=== PATIENT | female | born 1955 | race Caucasian/White ===

== ENCOUNTER 2019-06-23 23:19 | Inpatient (IN) | payer BC, MEDICARE ==
[2019-06-24] MEDS ORDERED: Morphine 2 MG/ML SYRINGE ONE (01:58)
[2019-06-24] MEDS ORDERED: diphenhydrAMINE 50 MG/ML VIAL ONE (02:05)
[2019-06-24] MEDS ORDERED: Ondansetron ODT 4 MG TAB SL PRN (03:44)
[2019-06-24] MEDS ORDERED: Ondansetron PF 4 MG/2 ML Vial IVP PRN (03:44)
[2019-06-24] MEDS ORDERED: Dextrose 5 % And 0.9 % NaCl 1,000 ML IV SCH (03:45)
[2019-06-24 03:50] VITALS: BMI 27.8
[2019-06-24] MEDS ORDERED: hydrALAZINE 20 MG/ML VIAL SLOW IVP PRN (10:17)
--- NOTE | 2019-06-24 11:13 | CON ---
DATE OF CONSULTATION: HISTORY OF PRESENT ILLNESS: Evelyn Tracy is a 64-year-old female patient who spent most of her life in [place], but is in [place]. She is retired from administrative work. She smokes half a pack a day. Drinks alcohol rarely. She reports to the emergency room in [place] with onset of right lower quadrant pain Friday with nausea. No vomiting and has suffered anorexia. She has not had diarrhea or change in her bowel habits. She has never had a colonoscopy. She denies any hematochezia. She underwent evaluation in [place] and her white count was 13 and hemoglobin 13. Basic metabolic profile normal with mildly elevated creatinine 1.36. She had a CAT scan of the abdomen and pelvis revealing inflammatory changes in her cecum and ascending colon without appendicitis. She is admitted to the Medical Service and I was consulted. I subsequently consulted GI. She has never had a colonoscopy. The patient reports cystoscopy 15-20 years ago for workup of hematuria and no hematuria since that time. ALLERGIES: NONE. SOCIAL HISTORY: Tobacco 1/2 pack per day. Alcohol rarely. MEDICATIONS: Aspirin 81 mg a day. PAST SURGICAL HISTORY: Bilateral tubal ligation. PAST MEDICAL HISTORY: She reports increasing dyspnea with exertion, but continues to smoke. She does not have any chest pain or pressure. PHYSICAL EXAMINATION: VITAL SIGNS: Height 5 foot 5 inches, 27 BMI, 99 degrees, heart rate 103, blood pressure 90/54. HEAD, EARS, EYES, NOSE AND THROAT: Unremarkable. LUNGS: Clear to auscultation. CARDIAC: Regular rate and rhythm without murmur or gallop. ABDOMEN: Mild wheezing on the right lung field on expiration. ABDOMEN: Soft plus bowel sounds. Tenderness in her right lower quadrant with mild guarding, but no peritoneal signs. Remainder of her quadrants remained soft. She has palpable posterior tibial and dorsalis pedis pulse, right; palpable posterior tibial pulse, left; and nonpalpable dorsalis pedis pulse, left. There is no ankle edema. DIAGNOSTIC STUDIES: Chest x-ray has not been obtained. EKG not obtained. ASSESSMENT/PLAN: 1. Abdominal pain, probably related to ischemic colitis versus typhlitis. I do not think surgery is warranted. I would treat her with intravenous antibiotics and fluid hydration and tobacco cessation. Would ask GI to see her for future colonoscopy screening. She has never had a colonoscopy. We will follow her along with you, but doubt surgery will be indicated for her and this should resolve nonsurgically. 2. Dyspnea on exertion along with tobacco abuse, suspect chronic obstructive pulmonary disease with some mild wheezing in the right lung field. Obtain a PA and lateral chest x-ray. Obtain echocardiogram. She would probably benefit from cardiac stress testing this hospitalization due to her progressive dyspnea complaints. 3. Tobacco abuse. Job ID: [id number]
--- NOTE | 2019-06-24 11:40 | RAD ---
EXAM: Chest PA and lateral: HISTORY: Dyspnea. Wheezing. COMPARISON: None FINDINGS: Heart: Normal cardiac silhouette Aorta: Unremarkable Pulmonary vessels: Normal Costophrenic angles: Costophrenic angles are clear. Lungs: Inflation. No mass or consolidation. Pneumothorax: No pneumothorax Osseous structures: No osseous abnormalities IMPRESSION: Hyperinflation. COPD.
[2019-06-24 12:07] LABS: #Eosinphils 0.1 thou/uL (0.0-0.7); #Lymphocytes 2.1 thou/uL (1.20-3.40); #Monocytes 1.2 thou/uL (0.11-0.59); #Neutrophils 6.2 thou/uL (1.40-6.50); %Basophils 0.4 % (0.0-1.0); %Eosinophils 1.2 % (0.0-10.0); %Lymphocytes 21.4 % (21.0-51.0); %Monocytes 12.4 % (0.0-10.0); %Neutrophils 64.7 % (42.0-75.0); Hemoglobin 12.7 g/dL (12.0-16.0); Mean Corpuscular Volume 91.1 fL (78.0-98.0); Platelet Count 227 thou/uL (130-400); RBC Distribution Width 12.4 % (11.5-14.5); Red Blood Cell (RBC) Count 4.24 mill/uL (4.20-5.40); White Blood Cell (WBC) Count 9.6 thou/uL (4.8-10.8)
[2019-06-24 12:29] LABS: Anion Gap 11 mmol/L (10-20); BUN (Urea Nitrogen) 15 mg/dL (9.8-20.1); Calc. Creatinine Clearance 64 mL/min (70-130); Calcium 8.5 mg/dL (7.8-10.44); Carbon Dioxide 26 mmol/L (23-31); Chloride 105 mmol/L (98-107); Estimated GFR-MDRD 51; Glucose 85 mg/dL (80-115); Potassium 3.9 mmol/L (3.5-5.1); Sodium 138 mmol/L (136-145)
[2019-06-24] MEDS: Acetaminophen 325 MG TAB PO PRN ×2 (12:59→23:10)
[2019-06-24] MEDS: metroNIDAZOLE 500 MG in Premix Bag 1 BAG IVPB SCH ×2 (13:00→20:43)
[2019-06-24] MEDS: Dextrose 5 % And 0.9 % NaCl 1,000 ML IV SCH ×2 (13:01→23:56)
--- NOTE | 2019-06-24 16:16 | HP ---
PRIMARY CARE PHYSICIAN: The patient does not have a primary care physician. CHIEF COMPLAINT: Abdominal pain. HISTORY OF PRESENT ILLNESS: Ms. Tracy is a very pleasant 64-year-old female, who has a history of hypercholesterolemia. She was in her usual state of health until Friday; around 5:30 in the evening, she started having some pain in her lower right abdomen. She said it started on the right side and it was radiating across. On Friday, she started having fever all day. By Friday, the pain was starting to get worse and progressively got worse throughout the day. That evening she went to the emergency room in [place], where she was evaluated, and CT scan was done, which showed some inflammatory changes in the cecum and also an elevated white blood cell count, and for this reason, she was transferred to our facility for further evaluation. She also admits to having some nausea, off and on, but no vomiting. Her appetite has been diminished. She noted some chills off and on and feeling weak and lightheaded. No diarrhea, but she has had some constipation off and on and she describes the pain as being sharp in character and it started at about 7/10 on Friday and then progressed to a 10/10 when she came to the ER. Otherwise, she admits to some dyspnea on exertion, which has been progressive over the last months to years. She says that she can barely walk about a block before getting very short of breath, but she denies any PND or orthopnea, but she does note some palpitations off and on. REVIEW OF SYSTEMS: All systems were reviewed and are negative except for that mentioned in the history of present illness. PAST MEDICAL HISTORY: Significant for hypercholesterolemia. PAST SURGICAL HISTORY: She had a bilateral tubal ligation in her 20s. ALLERGIES: SHE SAYS TO MORPHINE, WHICH SHE DID KNOW UNTIL THIS ADMISSION. SHE STARTED HAVING SOME ITCHING AND RASH AFTER THE ADMINISTRATION. SOCIAL HISTORY: She is . She smokes about half a pack a day for at least 20 years. Denies any alcohol use or drugs. FAMILY HISTORY: Significant for cancer in her grandmother, stomach tumor and brain tumor in cousin who had melanoma, and a sister who had breast cancer. CURRENT MEDICATIONS: No prescribed medicines that she takes Caltrate, cranberry tablets, vitamin D, and aspirin 81 mg daily. PHYSICAL EXAMINATION: GENERAL: She is alert and oriented. She appears to be in no acute distress. She is well developed and well nourished. VITAL SIGNS: Blood pressure was 98/54, heart rate 103, respiratory rate of 18, and temperature is 99.0. HEENT: Pupils are equal, round, and reactive to light. Extraocular muscles are intact. Her sclerae are anicteric. Throat; there is no erythema. No exudates. NECK: No adenopathy. No bruits. LUNGS: Clear except for an occasional expiratory wheeze. It is very mild. No rhonchi. CARDIOVASCULAR: She has a normal S1-S2. I did not appreciate S3 or S4. No murmurs, clicks, or rubs. ABDOMEN: Soft. She did have some right lower quadrant tenderness with some voluntary guarding, but no rebound tenderness. No evidence of peritoneal signs. No evidence of any organomegaly. EXTREMITIES: There is no clubbing or cyanosis. No edema. No calf tenderness. No joint effusions. NEUROLOGIC: The exam is nonfocal. LABORATORY DATA: Lab results from yesterday; white blood cell count was 13.2, hemoglobin 13.8, hematocrit was 43.4, and platelet count was 228. Sodium 137, potassium 4.1, chloride is 101, CO2 is 21, BUN of 18, creatinine 1.36, and glucose is 99. On her urinalysis, there was large blood, white blood cell count 4 to 6, and she had 3+ bacteria. ASSESSMENT: This is a pleasant 64-year-old female, who presents to the emergency room with right lower quadrant pain and leukocytosis and evidence of cecal inflammation on CT scan. I suspect this could be infectious in origin, however, she has never had a colonoscopy. PLAN: 1. Cecal inflammatory change. We will treat her empirically with IV antibiotics as well as IV fluids. Symptom management. Placed on clear liquid diet and agree with Surgery consult, but we will also consult Gastroenterology as well. 2. Dyspnea on exertion. She is a long-time smoker. I suspect this could be due to undiagnosed COPD, especially with the wheezing on exam. She has been instructed about the dangers of smoking. She says she would like to hold off on any medications at this time including nicotine replacement and Chantix or Wellbutrin. She would like to research more on the side effects, but for now, we will go ahead and check and place her on DuoNeb p.r.n. We will also check an echocardiogram. 3. Hyperlipidemia. We will check her lipid panel, and again, I have discussed smoking cessation, and further recommendations to follow. Job ID: [id number]
--- NOTE | 2019-06-24 17:47 | CON ---
DATE OF CONSULTATION: 06/24/2019 REQUESTING PHYSICIAN: Blane Hernandez MD REASON FOR CONSULTATION: Right lower quadrant pain and abnormal CT scan. HISTORY OF PRESENT ILLNESS: Evelyn Tracy is a 64-year-old woman with no significant past gastrointestinal history. She has had a bilateral tubal ligation. She has never undergone EGD or colonoscopy. She does smoke a half a pack of cigarettes per day. She states 3 days ago, she had the onset of pain in the right lower quadrant. This slowly escalated over the following couple of days and began to involve the lower abdomen more diffusely. There was no nausea or vomiting with this. No change in normal bowel habits. She had a bowel movement late yesterday, which appeared normal to her. There has been no melena or hematochezia. No sick contacts. The pain escalated to the point, where she presented to the emergency department in [place]. She had a CT scan of the abdomen and pelvis. This demonstrated localized inflammatory changes in the cecum without appendicitis. She was transferred here and admitted to the Medical Service. Dr. Hernandez has evaluated her already and has recommended conservative therapy due to the absence of appendicitis. She has been started on IV ciprofloxacin and Flagyl. She states this afternoon, she is actually feeling quite a bit better and she is requesting to be discharged if possible. PAST MEDICAL HISTORY: Tobacco abuse. PAST SURGICAL HISTORY: Bilateral tubal ligation, cystoscopy. ALLERGIES: NO KNOWN DRUG ALLERGIES. OUTPATIENT MEDICATIONS: Aspirin 81 mg daily. INPATIENT MEDICATIONS: 1. Ciprofloxacin 400 mg IV q.12 hours. 2. Metronidazole 500 mg IV q.8 hours. 3. Tylenol p.r.n. FAMILY HISTORY: Negative for gastrointestinal illness or malignancy. SOCIAL HISTORY: She does smoke a half a pack cigarettes per day. Alcohol use is rare. No drug use. PHYSICAL EXAMINATION: VITAL SIGNS: Temperature 99.0, pulse 103, blood pressure 98/54, and 94% oxygen saturation on room air. GENERAL: In no acute distress. SKIN: No jaundice, no rashes were palpable. EYES: No scleral icterus. Extraocular movements intact. ENT: Mucous membranes moist. No oral lesions. LYMPH: No submandibular, supraclavicular lymphadenopathy. Thyroid nontender to palpation. MENTAL: She is alert, fully oriented, pleasant and conversational. HEART: Regular rate and rhythm. LUNGS: Clear to auscultation bilaterally. No wheezing. ABDOMEN: Flat. Bowel sounds present. Soft. Minimal tenderness to palpation on the right side of the abdomen, but no guarding or rebound tenderness. EXTREMITIES: No peripheral edema. VESSELS: Radial pulses 2+ bilaterally. NEUROLOGIC: Cranial nerves 2 through 12 intact bilaterally. No focal deficits. LABORATORY STUDIES: WBC 9.6, hemoglobin 12.7, and platelets 227. Sodium 138, potassium 3.9, BUN 15, creatinine 1.07, glucose 85, and calcium 8.5. IMAGING STUDIES: Chest x-ray shows hyperinflation. CT of the abdomen and pelvis from last night demonstrated thickening of the cecal wall with surrounding inflammatory changes. Some slight thickening of the proximal appendix, but with air present in a normal-appearing distal appendix, inconsistent with primary appendicitis. There is some diverticulosis. There is a 1.9-cm oblong lucency in the central portion of the right liver lobe, unchanged since a prior ultrasound back in 2009. Normal-appearing spleen, pancreas, gallbladder, adrenal glands, and kidneys. ASSESSMENT AND PLAN: 1. Right lower quadrant pain. 2. Abnormal CT scan, demonstrating thickening and inflammatory changes around the cecum, without appendicitis. I discussed the case with Dr. Hernandez and also with the patient. The differential would include localized focal acute colitis, versus possible neoplastic process with inflammatory reaction. The patient is not really having diarrhea or any other symptoms to make me to think the process is more extensive than just involving the cecum/right colon. She is feeling a little bit better this afternoon on antibiotics and is really wanting to go home if possible. I think that would be reasonable, but I did advise that we proceed with diagnostic colonoscopy at least within the next few weeks. She reports willingness to go through with this. That being the case, I would recommend that she have a 5-day course of oral ciprofloxacin and Flagyl. Present back to the hospital if symptoms escalate in the meantime. Otherwise, I will have my office contact her to schedule followup colonoscopy within the next 2 to 3 weeks. Thank you for the consultation. Please call anytime with questions or concerns. Job ID: [id number]
[2019-06-24] MEDS: Famotidine 20 MG TAB PO SCH (20:43)
[2019-06-24] MEDS ORDERED: Prevnar 13-Val Conj/PF 0.5 ML SYRINGE IM ONE (21:00)
[2019-06-24] MEDS ORDERED: FLU VACC TS2019-20(65YR UP)/PF 180 MCG/0.5 ML SYRINGE IM ONE (21:00)
[2019-06-25] MEDS: metroNIDAZOLE 500 MG in Premix Bag 1 BAG IVPB SCH ×2 (03:59→12:14)
[2019-06-25] MEDS: Dextrose 5 % And 0.9 % NaCl 1,000 ML IV SCH ×2 (03:59→12:14)
[2019-06-25 06:21] LABS: Cardiac Risk 4.1 (Less than 4.5)
[2019-06-25] MEDS: Enoxaparin Sodium 40 MG/0.4 ML SYRINGE SC SCH ×2 (08:31→08:32)
[2019-06-25] MEDS: Famotidine 20 MG TAB PO SCH (08:31)
--- NOTE | 2019-06-25 11:57 | PRG ---
DATE OF SERVICE: 06/25/2019 SUBJECTIVE: Evelyn Tracy is doing well today. She has refused her echocardiogram. She has refused her cardiac stress test. She complained of progressive dyspnea on exertion that is probably related to her tobacco abuse and COPD, but nonetheless, these studies were ordered and she has refused them. She wants to go home. She reports her pain is much improved. Dr. Vimal Conde's evaluation appreciated. She reports her pain although not resolved is much improved. OBJECTIVE: LUNGS: Clear to auscultation. Minimal wheeze on the right expiration. CARDIAC: Regular rate and rhythm. ABDOMEN: Mild tenderness in right lower quadrant, less intense than yesterday. Abdomen is otherwise soft. EXTREMITIES: Unremarkable. LABORATORY DATA: White count 9 and hemoglobin 12. Basic metabolic profile normal. ASSESSMENT AND PLAN: 1. Abdominal pain, seems to be improved. It is probably related to a colitis, may be infectious, inflammatory, or ischemic. We would recommend tobacco cessation, hydration, continuation of antibiotics as outlined by Dr. Conde. Currently, there is no surgical indication and I will see her as needed. Dr. Cardenas is covering over the weekend. Call if necessary. From my standpoint, she could go home, but would advise tobacco cessation. 2. Chronic obstructive pulmonary disease, tobacco abuse, progressive dyspnea. Tobacco cessation. 3. The patient refused echocardiogram and cardiac workup. I will see her as needed. Please call if necessary. Job ID: [id number]
--- NOTE | 2019-06-25 14:19 | PDOC.HOSPP ---
- Subjective Encounter Date: 06/25/19 Encounter Time: 14:17 Subjective: Ms. Tracy was seen today in follow-up of cellulitis. - Objective Vital Signs & Weight: Vital Signs (12 hours) Temp Pulse Resp BP Pulse Ox 06/25/19 08:08 98.5 F 82 18 112/70 94 L 06/25/19 08:00 94 L 06/25/19 04:05 98.4 F 87 17 108/67 93 L Weight Admit Weight 170 lb Weight 170 lb Result Diagrams: 06/24/19 11:54 06/24/19 11:54 Hospitalist ROS - Medication Medications: Active Medications Generic Name Dose Route Start Last Admin Trade Name Freq PRN Reason Stop Dose Admin Acetaminophen 650 mg 06/24/19 10:17 06/24/19 23:10 Tylenol PO 650 mg Q4H PRN Administration Headache/Fever/Mild Pain (1-3) Enoxaparin Sodium 40 mg 06/25/19 09:00 06/25/19 08:32 Lovenox SC Not Given 0900 BLAKE Famotidine 20 mg 06/24/19 21:00 06/25/19 08:31 Pepcid PO 20 mg BID BLAKE Administration Dextrose/Sodium Chloride 1,000 mls @ 100 mls/hr 06/24/19 10:17 06/25/19 12:14 D5 0.9% Ns IV 1,000 mls .Q10H BLAKE Administration Ciprofloxacin/Dextrose 400 mg/ 200 mls @ 200 mls/hr 06/24/19 11:00 06/25/19 10:33 Device IVPB 200 mls 1100,2300 BLAKE Administration Metronidazole 500 mg/ Device 100 mls @ 100 mls/hr 06/24/19 12:00 06/25/19 12: 14 IVPB 100 mls 0400,1200,2000 BLAKE Administration - Exam Eye: PERRL Heart: RRR, no murmur, no gallops, no rubs, normal peripheral pulses Respiratory: CTAB, no wheezes, no rales, no ronchi, normal chest expansion Gastrointestinal: soft, non-tender, non-distended, normal bowel sounds, no palpable masses, no hepatomegaly Extremities: no cyanosis, no edema Hosp A/P (1) Colitis Code(s): K52.9 - NONINFECTIVE GASTROENTERITIS AND COLITIS, UNSPECIFIED Status : Acute (2) Tobacco abuse Code(s): Z72.0 - TOBACCO USE Status: Acute - Plan * Colitis- improved clinically * She does not want to have the cardiac work-up in the hospital * Stable for discharge home.
[2019-06-25 15:13] VITALS: BP 113/63; TEMP 98.2
--- NOTE | 2019-06-26 06:43 | PQF ---
MARIIA WHITTEN TONI MD [id number] CLINICAL DOCUMENTATION CLARIFICATION FORM: POST DISCHARGE Addendum to original discharge summary date: ____ Late entry note date: __ DATE: 06/26/2018 ATTN: WEI CHAKRABORTY MD Please exercise your independent, professional judgment in responding to the clarification form. Clinical indicators are provided on the bottom of this form for your review Please check appropriate box(s): [ ] Infectious Colitis [ ] Ischemic Colitis [ ] Inflammatory Colitis [ ] Colitis unspecified [ ] Other diagnosis [ ] Unable to determine For continuity of documentation, please document condition throughout progress notes and discharge summary. Thank You. CLINICAL INDICATORS - SIGNS / SYMPTOMS / LABS - Colitis-improved clinically-Hospital PN, 06/25, WEI CHAKRABORTY MD - Abdomen pain, seems to be improved, it is probably related to a colitis- Progress note, 06/25, David Arguelles MD - may be infectious, inflammatory, or ischemic-Progress note, 06/25, David Arguelles MD - Cecal inflammation-ED record, 06/24, Stan Farias MD RISK FACTORS - COPD, tobacco abuse-Progress note, 06/25, David Arguelles MD - Some Constipation-H&P, 06/24, WEI CHAKRABORTY MD TREATMENT: -Morphine- MAR, 06/24 -Continuation of antibiotics-Progress note, 06/25, David Arguelles MD (This form is maintained as a part of the permanent medical record) 2014 [employer]. All Rights Reserved Marina Thapa [not provided] [not provided] MTDD
--- NOTE | 2019-06-27 14:24 | EKG ---
Test Reason : Blood Pressure : / mmHG Vent. Rate : 098 BPM Atrial Rate : 098 BPM P-R Int : 166 ms QRS Dur : 086 ms QT Int : 360 ms P-R-T Axes : 072 044 044 degrees QTc Int : 459 ms Sinus rhythm with Premature atrial complexes Otherwise normal ECG No previous ECGs available Confirmed by MICHELLE ADHIKARI (2) on 06/27/2019 2:23:30 PM Referred By: PADILLA Confirmed By:MICHELLE ADHIKARI
== END 2019-06-25 15:14 | disposition home or self-care (01) | DRG 392 ==
LOC: ERS 23:19 → T4-A 06-24 03:09
PROVIDERS: ADMIT Family Medicine; ATTEND Family Medicine
DX: K52.9 Noninfective gastroenteritis and colitis, unspecified (principal); F17.210 Nicotine dependence, cigarettes, uncomplicated; R00.0 Tachycardia, unspecified; K59.00 Constipation, unspecified; E78.00 Pure hypercholesterolemia, unspecified; E78.5 Hyperlipidemia, unspecified; J44.9 Chronic obstructive pulmonary disease, unspecified; Z98.51 Tubal ligation status
CPT/HCPCS: 36415; 71046; 80048; 80061; 85025; 93005; 93010; 96361; 96365; 96375; 96376; J0744; J1200; J1650; J2270

== ENCOUNTER 2019-08-27 12:30 | Emergency (ER) | payer BC, MEDICARE ==
[~2019-08-27 12:30] MED LIST: Iopamidol 370 76% 50 ML VIAL FS ONE; Iopamidol-370 76% 500 ML 1 ML ONE
--- NOTE | 2019-08-27 12:55 | RAD ---
EXAM: Single view of the chest HISTORY: Chest pain and abdominal pain. Transfer from endoscopy Center COMPARISON: None FINDINGS: Single view of the chest shows a normal sized cardiomediastinal silhouette. No free air is seen beneath the diaphragm. There is no evidence of consolidation, mass, or pleural effusion. The bones are unremarkable. IMPRESSION: No evidence of acute cardiopulmonary disease
[2019-08-27 12:58] LABS: #Basophils 0.1 thou/uL (0.0-0.2); #Eosinphils 0.1 thou/uL (0.0-0.7); #Monocytes 0.6 thou/uL (0.11-0.59); #Neutrophils 6.7 thou/uL (1.40-6.50); %Basophils 0.9 % (0.0-1.0); %Eosinophils 0.7 % (0.0-10.0); %Monocytes 6.3 % (0.0-10.0); %Neutrophils 71.1 % (42.0-75.0); Hemoglobin 14.7 g/dL (12.0-16.0); Mean Corpuscular HGB CONC 33.1 g/dL (32.0-36.0); Mean Corpuscular Hemoglobin 29.7 pg (27.0-31.0); Mean Corpuscular Volume 89.7 fL (78.0-98.0); Mean Platelet Volume 9.3 fL (7.4-10.4); Platelet Count 256 thou/uL (130-400); RBC Distribution Width 13.5 % (11.5-14.5); Red Blood Cell (RBC) Count 4.96 mill/uL (4.20-5.40); White Blood Cell (WBC) Count 9.5 thou/uL (4.8-10.8)
[2019-08-27] MEDS ORDERED: Ondansetron PF 4 MG/2 ML Vial ONE (13:00)
[2019-08-27] MEDS ORDERED: Morphine 4 MG/ML VIAL ONE (13:00)
[2019-08-27] MEDS ORDERED: Fentanyl 100 MCG/2 ML VIAL ONE (13:12)
[2019-08-27 13:29] LABS: ALT (SGPT) 12 U/L (8-55); AST (SGOT) 15 U/L (5-34); Albumin 4.3 g/dL (3.4-4.8); Alkaline Phosphatase 80 U/L (40-110); Anion Gap 10 mmol/L (10-20); BUN (Urea Nitrogen) 13 mg/dL (9.8-20.1); Bilirubin, Total 0.5 mg/dL (0.2-1.2); Calc. Creatinine Clearance 0 mL/min (70-130); Calcium 9.2 mg/dL (7.8-10.44); Carbon Dioxide 26 mmol/L (23-31); Chloride 106 mmol/L (98-107); Estimated GFR-MDRD 53; Glucose 102 mg/dL (80-115); Lipase 31 U/L (8-78); Potassium 4.3 mmol/L (3.5-5.1); Protein, Total 7.3 g/dL (6.0-8.3); Sodium 138 mmol/L (136-145)
--- NOTE | 2019-08-27 14:22 | HP ---
HISTORY OF PRESENT ILLNESS: Evleyn Tracy is a 64-year-old female patient, who in June presented to the hospital, I saw her in consultation for abdominal pain, admitted to the hospitalist service. CAT scan at that time revealed inflammatory changes in the right lower quadrant. She had a mild leukocytosis. Her appendix was normal. She had never had a colonoscopy. We treated her with antibiotics. She improved by the next day, was sent home with 2 weeks of oral antibiotics and instructions to follow up with Dr. Conde for colonoscopy. The patient had been seen by Dr. Conde during that hospitalization. The patient had an appointment to see Dr. Conde in July, but canceled that for personal reasons, and now presented today for colonoscopy. Dr. Conde found on colonoscopy her to have a very large tumor in her ascending colon. She also had a large polyp, which he could not entirely remove in the proximal transverse colon he believes. He tattooed that just beyond the polyp. The patient postprocedural had pain and was sent by ambulance to the emergency room. On arrival, she states her pain is much better and her vital signs are normal. The patient states that after the hospitalization in June, she had pain for a week and a half to 2 weeks and then it resolved and she has been pain-free since. She does smoke a half a pack a day. She is trying to quit. Her smokes heavily. There is no family history of colon cancer. In the emergency room, her white count is 9 and hemoglobin is 14, comprehensive metabolic profile normal, CEA level is slightly elevated at 8.64. CAT scan is pending. Past chest x-ray in June revealed mild changes of COPD. Repeat chest x-ray today performed reveals no evidence of acute disease. ALLERGIES: MORPHINE, ADVERSE SIDE EFFECTS. HABITS: Tobacco 1/2 pack per day. Alcohol rarely. MEDICATIONS: Aspirin 81 mg a day. PAST SURGICAL HISTORY: Bilateral tubal ligation. PAST MEDICAL HISTORY: As noted above. No chest pain. No chest pressure. The patient reports cystoscopy close to 20 years ago, workup for hematuria, but no problems with hematuria since. PHYSICAL EXAMINATION: VITAL SIGNS: Heart rate 84, blood pressure 120/74, and respiratory rate 18. LUNGS: Clear to auscultation. No wheezing. CARDIAC: Regular rate and rhythm. ABDOMEN: Soft. Mild tympany from recent colonoscopy, but no guarding and no rebound. EXTREMITIES: Unremarkable. LABORATORY DATA: As noted above. ASSESSMENT/PLAN: Right colon tumor. Pathology pending. We recommend laparoscopic right colon resection as well as resection of the polyp, that is thought to be in the proximal transverse colon, has a tattoo just distal to it. She understands the risks of infection, bleeding, visceral injury, anastomotic leakage, open operation, possibility, and consents. I have expressed the importance of tobacco cessation prior to her operation and she will try to comply. Her CEA level is slightly elevated at 8. Her chest x-ray does not show any evidence of metastatic disease and her CAT scan in June 2019 did not show any evidence of metastatic disease. We will await pathology after colon resection. Job ID: [id number]
--- NOTE | 2019-08-27 15:34 | CT ---
CT Abdomen Pelvis W Con: 08/27/2019 12:42 PM CLINICAL INFORMATION: Tumor seen during colonoscopy. Weight loss. COMPARISON: 06/23/2019 TECHNIQUE: Multiple contiguous axial images were obtained and a CT of the abdomen and pelvis with IV contrast. Oral contrast was administered. Coronal and sagittal reformats were performed. FINDINGS: Lower Chest: within normal limits. Abdomen: Liver: Nonspecific small hypodensities in the liver are too small to definitely characterize . Bile Ducts: Normal caliber. Gallbladder: No calcified gallstones. Normal caliber wall. Pancreas: within normal limits. Spleen: within normal limits. Adrenals: within normal limits. Kidneys: within normal limits. Pelvis: Reproductive Organs: No pelvic masses. Ureters: within normal limits. Bladder: within normal limits. Peritoneum: No ascites or free air, no fluid collection. Bowel: There is a 4.5 cm mass in the cecum. This is in the region where the previous inflammatory hyp odense region was seen. The small bowel and appendix are unremarkable. Scattered diverticula are seen in the colon. Mesentery and Retroperitoneum: There are small round ileocecal lymph nodes measuring up to 8 mm in si ze. No enlarged retroperitoneal lymph nodes are seen. Vessels: Atherosclerotic calcifications. Abdominal Wall: within normal limits. Bones: Degenerative changes in the spine. IMPRESSION: 1. Right cecal mass but likely small metastatic lymph nodes in the ileocecal region. 2. Nonspecific hepatic hypodensities. These could represent cysts. Metastatic lesions cannot be exclu ded.
== END 2019-08-27 16:03 | disposition home or self-care (01) ==
LOC: ERS 12:30
DX: K63.9 Disease of intestine, unspecified (principal); F17.210 Nicotine dependence, cigarettes, uncomplicated
CPT/HCPCS: 36415; 71045; 74177; 80053; 82378; 83690; 84484; 85025; 93005; 96374; 96375; J2270; J2405; J3010

== ENCOUNTER 2019-08-27 16:19 | Outpatient (CLI) | payer BC, MEDICARE | END 2019-08-27 16:20 | disposition home or self-care (01) | LOC: LABBT 16:19 | PROVIDERS: ATTEND Specialist | DX: Z01.812 Encounter for preprocedural laboratory examination (principal); C18.9 Malignant neoplasm of colon, unspecified | CPT/HCPCS: 83036 ==

== ENCOUNTER 2019-08-30 05:50 | Inpatient (IN) | payer BC, MEDICARE ==
[2019-08-27 16:29] VITALS: BMI 25.4
[2019-08-30] MEDS ORDERED: Sodium Chloride 0.9% 100 ML ONE (06:03)
[2019-08-30] MEDS ORDERED: Ketorolac Tromethamine 30 MG/ML VIAL ONE ×2 (06:03→10:25)
[2019-08-30] MEDS ORDERED: cefTRIAXone\\ROCEPHIN 2 GM VIAL ONE (06:03)
[2019-08-30] MEDS ORDERED: Acetaminophen 500 MG TAB ONE (06:09)
[2019-08-30] MEDS ORDERED: HYDROmorphone 0.5 MG/0.5 ML SYRINGE ONE (06:39)
[2019-08-30] MEDS ORDERED: Fentanyl 100 MCG/2 ML VIAL ONE ×4 (06:39→11:42)
[2019-08-30] MEDS ORDERED: Lidocaine 1% (PF) 30 ML VIAL ONE (06:48)
[2019-08-30] MEDS ORDERED: Midazolam HCl 2 mg/2 ml Vial ONE (06:48)
[2019-08-30] MEDS ORDERED: Dexamethasone 4 mg/ml Vial ONE (06:53)
[2019-08-30] MEDS ORDERED: Scopolamine 1.5 mg/72 hour Patch ONE (07:02)
[2019-08-30] MEDS ORDERED: Gabapentin 300 MG CAP ONE (07:03)
[2019-08-30] MEDS ORDERED: Lidocaine 1% w/Epinephrine 1:100K 20 ML VIAL ONE (07:04)
[2019-08-30] MEDS ORDERED: Bupivacaine 0.25% HCL 30 ML VIAL ONE (07:04)
[2019-08-30] MEDS ORDERED: Bupivacaine PF 0.5% 30 ML VIAL ONE (07:04)
[2019-08-30] MEDS ORDERED: cefOXitin 2 GM VIAL ONE ×2 (08:16→10:15)
[2019-08-30] MEDS ORDERED: PROPOFOL 200 MG/20 ML VIAL ONE (10:25)
[2019-08-30] MEDS ORDERED: Glycopyrrolate 0.2 MG/ML 5 ML SYRINGE ONE (10:25)
[2019-08-30] MEDS ORDERED: Dexamethasone 20 MG/5 ML VIAL ONE ×2 (10:25)
[2019-08-30] MEDS ORDERED: Rocuronium Bromide 10 MG/ML (10ML VIAL) ONE (10:25)
[2019-08-30] MEDS ORDERED: Lidocaine 1% PF 5 ML VIAL ONE (10:25)
[2019-08-30] MEDS ORDERED: Ondansetron PF 4 MG/2 ML Vial ONE (10:25)
[2019-08-30] MEDS ORDERED: Bupivacaine HCl 0.5%/Epinephrine 1:200,000/PF 30 ml Vial ONE (10:25)
[2019-08-30] MEDS ORDERED: Ondansetron PF 4 MG/2 ML Vial IVP PRN (10:58)
[2019-08-30] MEDS ORDERED: hydrALAZINE 20 MG/ML VIAL SLOW IVP PRN (10:58)
[2019-08-30] MEDS ORDERED: traMADol HCl 50 MG TAB PO PRN ×2 (11:02)
--- NOTE | 2019-08-30 11:07 | PDOC.GSCN ---
Surgery Consult: HPI - Consult details Date: 08/30/19 Time: 11:05 Reason for consult: endoscopy (colonoscopy showed colon cancer at the left splenic flexure) Surgery Consult: Meds - Allergies Allergies/Adverse Reactions: Allergies Allergy/AdvReac Type Severity Reaction Status Date / Time morphine Allergy Severe Rash Verified 08/27/19 16:26
[2019-08-30] MEDS ORDERED: Promethazine HCl 25 MG/ML VIAL SLOW IVP PRN (11:24)
[2019-08-30] MEDS ORDERED: Promethazine HCl 25 MG/ML VIAL IM PRN (11:24)
[2019-08-30] MEDS ORDERED: Ondansetron HCl/PF 4 MG/2 ML Vial IVP PRN (11:24)
[2019-08-30] MEDS ORDERED: Acetaminophen 500 MG TAB PO SCH (11:30)
[2019-08-30] MEDS: Ketorolac Tromethamine 30 MG/ML VIAL IVP SCH ×3 (13:27→23:18)
[2019-08-30] MEDS: D5 1/2 NS w/20 mEq KCL 1,000 ML IV SCH ×2 (13:28→14:02)
[2019-08-30] MEDS: Gabapentin 300 MG CAP PO SCH ×2 (15:43→20:01)
--- NOTE | 2019-08-30 16:53 | OP ---
DATE OF PROCEDURE: 08/30/2019 PREOPERATIVE DIAGNOSES: Right colon cancer, hepatic flexure, polyp. ANESTHESIA: General, TAP block. CLIENT DELIVERY MANAGER: RAMY Lehman. ESTIMATED BLOOD LOSS: 100 mL. BLOOD TRANSFUSION: None. DESCRIPTION OF PROCEDURE: The patient was taken to the operating room where under general anesthesia, Adames catheter placed at the beginning of the procedure and removed at the end. Abdomen was prepared with ChloraPrep and draped in routine fashion. The patient had a TAP block and local anesthetic was not used. Infraumbilical incision made, pneumoperitoneum to 15 mmHg was obtained with a Veress needle, replaced with a 5 port and laparoscope inserted. Right upper quadrant, left upper quadrant incision was made a 5 port placed. Right lower quadrant incision made a 5 port placed. Left mid lateral abdomen incision made and a 12 port placed. The patient tilted left lateral decubitus and a laparoscopic colon resection undertaken. There was some redundant omentum adherent to the splenic flexure and the right colon. This was taken down with the LigaSure, freeing this reflecting it cephalad. The gastrocolic ligament taken down from the proximal transverse colon using the ligature, mobilizing, reflecting it cephalad, identifying the mesentery. The terminal ileum was adhesed upon itself and an area just proximal to these adhesions mesentery taken down with hot scissors and terminal ileum divided with the JESUSITA blue load stapler. The peritoneum and the mesentery were then divided along the right abena abdomen down across the ileocolic vascular pedicle. Dissection was carried out identifying the duodenum, sweeping it medially, keeping it free of harm. The ileocolic pedicle was then divided with a white load stapler carefully under direct visualization. Mesentery dissected free right lateral, freeing the right colon, mobilizing it. It was dissected free up to identify the tattooed area of the proximal transverse colon where the unresectable polyp lied. Just distal to this, the colon was dissected free and divided with a JESUSITA blue load stapler. At this point, the colon specimen was noted to be completely free and placed in the right upper quadrant. An opening was made along the staple line of the transverse colon and ileum to accommodate the stapler and 12 mm port placed in the right lateral abdomen and a [id number] anastomosis created with 3 fires of the JESUSITA blue load 60 mm stapler. An anastomosis created antimesenteric and common defect closed with a staple technique is noted. The area irrigated. Good anastomosis noted. Good hemostasis noted. Pneumoperitoneum evacuated. Pfannenstiel incision was made, suprapubic skin and subcutaneous tissue and fascia transected transversely and elevated proximally and distally and then rectus muscle midline split and wound protector inserted. The grasper had been placed through a 5 port into this area, grasping the specimen under laparoscopic visualization prior to decompression of the pneumoperitoneum. At this point, pneumoperitoneum in being completely reduced and specimen was removed using the wound protector. Specimen opened the back table and unresectable polyp sessile noted. It was retrieved. A large tumor mass noted along the cecum, proximal right colon distorting the serosa with adherent surrounding fat. It was submitted to pathology with adherent omentum. As sponge, needle counts were correct and gloves and gowns were changed of the entire operative crew, the trocars were all removed and skin incisions all closed with interrupted subdermal 4-0 Monocryl and Pfannenstiel incision closed by approximating the fascia with #1 PDS and skin with continuous subcuticular 4-0 Monocryl, after irrigating the wound a Dermabond applied. The patient tolerated the procedure well. Job ID: [id number]
[2019-08-30] MEDS: Famotidine/PF 20 mg/2ml Vial SLOW IVP SCH (20:01)
[2019-08-30] MEDS: Famotidine 20 MG TAB PO SCH (20:01)
[2019-08-30] MEDS: Enoxaparin Sodium 40 MG/0.4 ML SYRINGE SC SCH (20:01)
[2019-08-31] MEDS: D5 1/2 NS w/20 mEq KCL 1,000 ML IV SCH ×2 (04:15→11:28)
[2019-08-31] MEDS: Ketorolac Tromethamine 30 MG/ML VIAL IVP SCH ×2 (05:15→11:06)
[2019-08-31 05:48] LABS: #Lymphocytes 1.1 thou/uL (1.20-3.40); #Neutrophils 10.5 thou/uL (1.40-6.50); %Basophils 0.2 % (0.0-1.0); %Eosinophils 0.1 % (0.0-10.0); %Lymphocytes 8.4 % (21.0-51.0); %Monocytes 7.6 % (0.0-10.0); %Neutrophils 83.6 % (42.0-75.0); Hemoglobin 11.5 g/dL (12.0-16.0); Mean Corpuscular HGB CONC 32.2 g/dL (32.0-36.0); Mean Corpuscular Hemoglobin 29.1 pg (27.0-31.0); Mean Corpuscular Volume 90.3 fL (78.0-98.0); Platelet Count 220 thou/uL (130-400); RBC Distribution Width 13.3 % (11.5-14.5); Red Blood Cell (RBC) Count 3.96 mill/uL (4.20-5.40); White Blood Cell (WBC) Count 12.6 thou/uL (4.8-10.8)
[2019-08-31 06:05] LABS: Anion Gap 9 mmol/L (10-20); BUN (Urea Nitrogen) 17 mg/dL (9.8-20.1); Calc. Creatinine Clearance 49 mL/min (70-130); Calcium 8.5 mg/dL (7.8-10.44); Carbon Dioxide 27 mmol/L (23-31); Chloride 102 mmol/L (98-107); Estimated GFR-MDRD 42; Glucose 124 mg/dL (80-115); Potassium 4.9 mmol/L (3.5-5.1); Sodium 133 mmol/L (136-145)
[2019-08-31] MEDS: Famotidine/PF 20 mg/2ml Vial SLOW IVP SCH (08:23)
[2019-08-31] MEDS: Famotidine 20 MG TAB PO SCH ×2 (08:25→20:38)
[2019-08-31] MEDS: Gabapentin 300 MG CAP PO SCH ×3 (08:25→20:38)
[2019-08-31] MEDS ORDERED: Aspirin 81 mg Enteric Coated Tablet PO SCH (09:00)
[2019-08-31] MEDS ORDERED: Iopamidol-370 76% 500 ML 1 ML ONE (14:21)
[2019-08-31] MEDS ORDERED: Ibuprofen 600 MG TAB PO PRN (15:08)
--- NOTE | 2019-08-31 15:21 | PRG ---
DATE OF SERVICE: 08/31/2019 SUBJECTIVE: Ms. Tracy is doing well today, one day status post laparoscopic right colon resection. Pathology of course is pending. CBC and basic metabolic panel are essentially normal today. Mild elevation in her BUN and creatinine. The patient is tolerating her diet. She has been saline locked today. OBJECTIVE: LUNGS: Clear to auscultation. CARDIAC: Regular rate and rhythm. No murmur or gallop. ABDOMEN: Soft. Postoperative tenderness. Wounds well healed. Trocar site is healthy. ASSESSMENT AND PLAN: Status post right colectomy. Suspect right colon malignancy. endoscopic biopsies from last week. There are no signs of extracolonic malignancy by imaging, although her CEA level is 8.6. At this point, I expect that she will need Oncology consultation, but we will arrange that as an outpatient. Her mobility is slightly poor and unbalanced. She has been using a walker. She may need to go home with a walker. We will see how she does overnight and reassess her tomorrow and hopefully, she can go home tomorrow. Job ID: [id number]
[2019-08-31] MEDS: Acetaminophen 500 MG TAB PO SCH (18:14)
[2019-08-31] MEDS ORDERED: Sodium Chloride 0.9% 1,000 ML IV SCH ×4 (19:45→23:15)
[2019-08-31 20:02] LABS: Mean Corpuscular HGB CONC 33.6 g/dL (32.0-36.0); Mean Corpuscular Volume 89.5 fL (78.0-98.0); Mean Platelet Volume 9.2 fL (7.4-10.4); Platelet Count 213 thou/uL (130-400); RBC Distribution Width 13.3 % (11.5-14.5); White Blood Cell (WBC) Count 14.3 thou/uL (4.8-10.8)
[2019-08-31 20:22] LABS: Anion Gap 12 mmol/L (10-20); BUN (Urea Nitrogen) 22 mg/dL (9.8-20.1); Calc. Creatinine Clearance 36 mL/min (70-130); Calcium 8.2 mg/dL (7.8-10.44); Carbon Dioxide 23 mmol/L (23-31); Chloride 103 mmol/L (98-107); Estimated GFR-MDRD 29; Glucose 130 mg/dL (80-115); Potassium 3.8 mmol/L (3.5-5.1); Sodium 134 mmol/L (136-145)
[2019-08-31 20:32] LABS: Band 45 % (5-11); Lymphocytes 7 % (21-51); MDiff Complete? YES; Metamyelocyte 1 % (0-0); Monocytes 5 % (0-10); Neutrophil 36 % (42-75); Platelet Morphology Comment Appears Adequate; Polychromasia SLIGHT = 2-3 cells (100X) (0-2/hpf); Reactive Lymphocytes 6 % (0-10); Reflex for Review?? NO
[2019-08-31] MEDS: Enoxaparin Sodium 40 MG/0.4 ML SYRINGE SC SCH (20:38)
--- NOTE | 2019-08-31 21:25 | RAD ---
XR Chest 1 View Portable HISTORY: Tachycardia. Hypotension. Shortness of breath. COMPARISON: 08/27/2019 exam. FINDINGS: Heart size and mediastinum are within normal limits. Chronic appearing lung changes are see n. No signs of failure. No focal infiltrates. IMPRESSION: No active intrathoracic disease.
[2019-08-31] MEDS: Sodium Chloride 0.9% 500 ML IV SCH (21:42)
[2019-08-31] MEDS ORDERED: Sodium Chloride 0.9% 500 ML IV SCH (21:45)
[2019-08-31 22:48] LABS: Hemoglobin 10.4 g/dL (12.0-16.0); Mean Corpuscular Hemoglobin 29.8 pg (27.0-31.0); Mean Corpuscular Volume 90.2 fL (78.0-98.0); Mean Platelet Volume 9.3 fL (7.4-10.4); Platelet Count 188 thou/uL (130-400); RBC Distribution Width 13.3 % (11.5-14.5); Red Blood Cell (RBC) Count 3.49 mill/uL (4.20-5.40); White Blood Cell (WBC) Count 14.2 thou/uL (4.8-10.8)
--- NOTE | 2019-08-31 23:03 | PDOC.HHP ---
Hospitalist HPI - History of Present Illness Hypotension History of Present Illness: HOSPITALIST CONSULTATION NOTE Consulting provider: Dr Hernandez Reason for consult: hypotension CC: Abdominal pain HPI Patient is a 64 year old female with PMH hyperlipidemia, suspected COPD, colon mass resected 08/30 who was admitted to surgical service under Dr Hernandez, was recently diagnosed with large ascending colon tumor after colonoscopy (Dr Conde) , patient was admitted to hospital and underwent a laparoscopic R colon resection on 08/[address] Hernandez, pathology pending, patient was recovering on floor when BP dropped around 3pm today from 100s/60s to 80s/50s, patient also tachycardic and developed hypoxia requiring 2L by NC. She had CXR which was unremarkable, labs collected which revealed leukocytosis and anemia w hgb 11-12 range, elevated bands, Cr has increased from 1.2 to 1.8 since this AM. Patient recieved IVF and we were asked to evaluate. Patient in bed, comfortable, no distress, reports abdominal pain which has been worsening over the last day or so, on NC, denies shortness of breath. Otherwise no complaints. Hospitalist ROS - Review of Systems Constitutional: denies: fever, chills, sweats, weakness, malaise, other Eyes: denies: pain, vision change, conjunctivae inflammation, eyelid inflammation, redness, other ENT: denies: ear pain, ear discharge, nose pain, nose discharge, nose congestion , mouth pain, mouth swelling, throat pain, throat swelling, other Respiratory: reports: shortness of breath (resolved with supplemental o2) Cardiovascular: denies: chest pain, palpitations, orthopnea, paroxysmal noc. dyspnea, edema, light headedness, other Gastrointestinal: reports: abdominal pain. denies: nausea, vomiting, diarrhea, constipation, melena, hematochezia, other Genitourinary: denies: dysuria, frequency, incontinence, hematuria, retention, other Musculoskeletal: denies: neck pain, shoulder pain, arm pain, back pain, hand pain, leg pain, foot pain, other Skin: denies: rash, lesions, anh, bruising, other Neurological: denies: weakness, numbness, incoordination, change in speech, confusion, seizures, other All other systems reviewed; all pertinent +/- noted in HPI/Subj - Medication Medications: Active Medications Generic Name Dose Route Start Last Admin Trade Name Freq PRN Reason Stop Dose Admin Acetaminophen 1,000 mg 08/31/19 18:00 08/31/19 18:14 Tylenol PO 1,000 mg Q6HR BLAKE Administration Enoxaparin Sodium 40 mg 08/30/19 21:00 08/31/19 20:38 Lovenox SC 40 mg 2100 BLAKE Administration Famotidine 20 mg 08/30/19 21:00 08/31/19 20:38 Pepcid PO 20 mg Q12HR BLAKE Administration Gabapentin 300 mg 08/30/19 15:00 08/31/19 20:38 Neurontin PO 300 mg TID BLAKE Administration Sodium Chloride 500 mls @ 0 mls/hr 08/31/19 21:45 08/31/19 21:42 Normal Saline 0.9% IV 08/31/19 23:45 500 mls .Q0M BLAKE Administration As Directed Ibuprofen 600 mg 08/31/19 15:08 08/31/19 18:14 Motrin PO 600 mg Q6H PRN Administration Pain 1-3 Tramadol HCl 50 mg 08/30/19 11:02 08/31/19 11:07 Ultram PO 50 mg Q6H PRN Administration Moderate Pain (4-6) Tramadol HCl 100 mg 08/30/19 11:02 08/30/19 14:00 Ultram PO 100 mg Q6H PRN Administration Severe Pain (7-10) Hospitalist History - Past Medical History Other Medical History: hyperlipidemia - Past Surgical History Past Surgical History: reports: Tubal Ligation - Family History Family History: reports: no pertinent history - Social History Other Social History: smokes 1/2 ppd, no drugs or alcohol use - Exam General Appearance: NAD, awake alert Eye: PERRL, anicteric sclera ENT: normocephalic atraumatic, no oropharyngeal lesions, moist mucosa Neck: supple, symmetric, no JVD, no thyromegaly, no lymphadenopathy, no carotid bruit Heart - other findings: tachycardic, regular rhythm Respiratory: CTAB, no wheezes, no rales, no ronchi, normal chest expansion, no tachypnea, normal percussion Gastrointestinal: soft, no guarding, no rigidity, tender to palpation (diffuse lower quadrant tenderness to deep palpation, no peritoneal signs, hypoactive bowel sounds) Extremities: no cyanosis, no clubbing, no edema Skin: normal turgor, no lesions, no rashes Neurological: cranial nerve grossly intact, normal sensation to touch, no weakness, no focal deficits, no new deficit Musculoskeletal: normal tone, normal strength, no muscle wasting Psychiatric: normal affect, normal behavior, A&O x 3 Hospitalist Results - Labs Result Diagrams: 08/31/19 22:39 08/31/19 19:54 Lab results: WBC 14.2 thou/uL (4.8-10.8) H 08/31/19 22:39 Hgb 10.4 g/dL (12.0-16.0) L 08/31/19 22:39 Hct 31.5 % (36.0-47.0) L 08/31/19 22:39 MCV 90.2 fL (78.0-98.0) 08/31/19 22:39 Plt Count 188 thou/uL (130-400) 08/31/19 22:39 Neutrophils % 83.6 % (42.0-75.0) H 08/31/19 05:06 Band Neuts % (Manual) 45 % (5-11) H 08/31/19 19:54 Sodium 134 mmol/L (136-145) L 08/31/19 19:54 Potassium 3.8 mmol/L (3.5-5.1) 08/31/19 19:54 Chloride 103 mmol/L (98-107) 08/31/19 19:54 Carbon Dioxide 23 mmol/L (23-31) 08/31/19 19:54 BUN 22 mg/dL (9.8-20.1) H 08/31/19 19:54 Creatinine 1.74 mg/dL (0.6-1.1) H 08/31/19 19:54 Glucose 130 mg/dL (80-115) H 08/31/19 19:54 Calcium 8.2 mg/dL (7.8-10.44) 08/31/19 19:54 - EKG Interpretation EKG: Sinus tachycardia [address] changes or dropped beats Hospitalist H&P A/P - Plan Plan: Patient is a 64 year old female with PMH hyperlipidemia, suspected COPD, colon mass resected 08/30 who was admitted to surgical service under Dr Hernandez, IM consulted for hypotension. # hypotension, tachycardia, leukocytosis, hypoxia - on POD 1 from laparoscopic bowel resection for colonic mass, CXR clear, lactic acid 1.3 - given vital sign changes and renal failure with abdominal pain, will do a CT abdomen and also CTA chest to rule out the most dangerous concerns (PE, abdominal bleeding), and will give 1L IVF to complete the 30 cc/kg bolus, will continue on zosyn and order blood cultures and monitor - d/c ASA and lovenox for now, can resume once postoperative bleeding ruled out - transfer to ICU for close monitoring # acute renal failure - unfortunately need CTA to rule out PE now, will trend Cr and watch for contrast induced nephropathy over the next few days # suspected COPD - no wheezing on exam, monitor closely # hyperlipidemia - noted GI ppx was ordered by surgery 47 minutes critical care time, high risk of decompensation requiring emergent investigation
[2019-08-31 23:06] LABS: Lactic Acid 1.3 mmol/L (0.5-2.2)
[2019-08-31 23:10] LABS: ALT (SGPT) 10 U/L (8-55); AST (SGOT) 15 U/L (5-34); Albumin 2.9 g/dL (3.4-4.8); Alkaline Phosphatase 52 U/L (40-110); Anion Gap 8 mmol/L (10-20); BUN (Urea Nitrogen) 22 mg/dL (9.8-20.1); Bilirubin, Total 0.4 mg/dL (0.2-1.2); Calc. Creatinine Clearance 37 mL/min (70-130); Calcium 7.4 mg/dL (7.8-10.44); Carbon Dioxide 25 mmol/L (23-31); Chloride 104 mmol/L (98-107); Estimated GFR-MDRD 30; Glucose 121 mg/dL (80-115); Potassium 4.1 mmol/L (3.5-5.1); Protein, Total 4.9 g/dL (6.0-8.3); Sodium 133 mmol/L (136-145)
[2019-08-31 23:15] LABS: Band 28 % (5-11); Lymphocytes 4 % (21-51); MDiff Complete? YES; Monocytes 5 % (0-10); Neutrophil 63 % (42-75); Platelet Morphology Comment Appears Adequate
--- NOTE | 2019-08-31 23:51 | CT ---
CT Abdomen Pelvis WO Con HISTORY: Recent colon surgery 3 days ago. Hypotension. Generalized pain. COMPARISON: None. FINDINGS: Linear atelectatic changes or scar is seen in the lung bases. The liver, spleen, pancreas and appear unremarkable. Small gallstones are noted. Right and left adrenal glands and right and left kidneys are normal in size. Postoperative changes of the right colon are demonstrated. There is air seen within the mesenteric fat, this area is more along the left side the abdomen the areas seen within the mesenteric fat of the jejunum and proximal ileum region. There is what appears be a laparoscopic portal along the left side the abdomen in this region. No free air seen under the hemidiaphragms. No fluid collections are visualized within th e abdomen or pelvis. Some minimal diverticulosis of the sigmoid colon is seen. The bladder is normal in position. Subcutaneous air related to the recent surgery is also noted. IMPRESSION: 1. Postoperative changes of the right colon. No evidence for any leak. There is air seen within the m esenteric fat more along the left side abdomen, this is remote in location from the suture line but is still probably all postoperative in nature. No fluid collections or signs for abscess. 2. Gallstones.
--- NOTE | 2019-08-31 23:53 | CT ---
CT angiogram of chest performed with intravenous contrast enhancement with 3-D reconstructions: HISTORY: Hypoxia. Postop. COMPARISON: None. FINDINGS: There are emphysematous lung changes seen with evidence of air trapping more pronounced in the upper lobes. No focal infiltrative processes noted. Linear atelectatic changes are seen within the lung bases. The thoracic aorta is normal in caliber. There is good pulmonary artery opacification, there is no CT evidence for pulmonary embolus. IMPRESSION: No CT evidence for pulmonary embolus.
[2019-09-01] MEDS: Acetaminophen 500 MG TAB PO SCH ×4 (00:07→19:56)
[2019-09-01] MEDS ORDERED: Fentanyl 250 MCG/5 ML VIAL ONE (00:39)
[2019-09-01] MEDS ORDERED: Lidocaine 2% Jelly 5 ML TUBE ONE (00:39)
[2019-09-01] MEDS ORDERED: Sodium Chloride 0.9% 1,000 ML IV SCH (02:16)
[2019-09-01] MEDS ORDERED: Sodium Chloride 0.9% (PF) 10 ML VIAL FS PRN (02:21)
[2019-09-01] MEDS ORDERED: Ondansetron PF 4 MG/2 ML Vial IVP PRN (02:23)
[2019-09-01] MEDS ORDERED: diphenhydrAMINE 50 MG/ML VIAL IVP PRN (02:23)
[2019-09-01] MEDS ORDERED: fentaNYL Citrate/PF 2,000 MCG in Sodium Chloride 0.9% 60 ML IV PRN (02:23)
[2019-09-01] MEDS ORDERED: Promethazine HCl 25 MG/ML VIAL IM PRN (02:23)
[2019-09-01] MEDS ORDERED: Zolpidem Tartrate 5 MG TAB PO PRN (02:23)
[2019-09-01] MEDS ORDERED: diphenhydrAMINE 25 MG CAP PO PRN (02:23)
[2019-09-01] MEDS ORDERED: diphenhydrAMINE 50 MG/ML VIAL IM PRN (02:23)
[2019-09-01] MEDS ORDERED: Naloxone HCl 0.4 mg/ml Vial IV PRN (02:23)
[2019-09-01] MEDS ORDERED: Communication Order-Pharmacy FS SCH (02:30)
--- NOTE | 2019-09-01 03:02 | PRG ---
DATE OF SERVICE: 08/31/2019 SUBJECTIVE: Ms. Malone has had problems this evening with diminished blood pressure, 08/31/2019 evening, one day postop. Her blood pressure dropped to the 80s to 90s. She was mentating normally. Heart rate was 125 to 130. She was given a liter of fluid bolus and IV fluids started again at 125 an hour. Her heart rate fell to 113. Her blood pressure remained low in the 80s to 90s, however. Respiratory rate was normal. Hemoglobin was checked, it was 10.4. White count was elevated to 14,000. She had 29% bandemia. The patient initially reported her abdominal pain is about the same as it was this morning, but later when I re-evaluated her, she stated it was getting worse. In the interim, Hospice had evaluated her considering her COPD and tobacco abuse history. She was requiring oxygen for low saturations. Chest x-ray obtained was unremarkable. No acute disease. There was no wheezing. The patient was noted to have a slight elevation of her BUN and creatinine and slight RENUKA. The patient did report that she had a bowel movement and urinated twice today and she tolerated a regular diet. The patient prior to my arrival, had a CTA that was normal. She had a CT scan of the abdomen and pelvis that was unremarkable reflecting expected postoperative findings post right colectomy. OBJECTIVE: LUNGS: Clear and there was no wheezing. ABDOMEN: Soft with guarding and tenderness in the right abdomen and pelvis, more so than expected post laparoscopic colon resection. ASSESSMENT AND PLAN: Postoperative tenderness, hypertension, bandemia, leukocytosis. We would recommend laparotomy anticipating anastomotic leak possibility. She understands risks and benefits, consents. Considering low blood pressure, we will place a central line in case pressor support is needed postoperatively. The patient understands this and questions were answered. Job ID: [id number]
--- NOTE | 2019-09-01 03:28 | OP ---
DATE OF PROCEDURE: 09/01/2019 TIME: 12:15 a.m. PREOPERATIVE DIAGNOSIS: Abdominal pain post colon resection, anticipate anastomotic leak despite normal CAT scan. POSTOPERATIVE DIAGNOSIS: Abdominal pain post colon resection, anticipate anastomotic leak despite normal CAT scan. PROCEDURE PERFORMED: Placement of left subclavian vein triple-lumen catheter. ANESTHESIA: 1% Xylocaine. DESCRIPTION OF PROCEDURE: With the patient at bedside in her room, her left angeles-clavicular area was prepared with ChloraPrep and draped in routine fashion. 1% Xylocaine was infiltrated in the skin and subcutaneous tissue about the operative site. Trocar catheter was cannulated in the left subclavian vein in infraclavicular approach. J-wire threaded, trocar catheter removed. Seldinger technique used to place a triple-lumen catheter, securing with 3-0 nylon suture and a Biopatch sterile dressing applied. Each port aspirated blood, flushed with saline solution. Chest x-ray called for and was noted to be in good position. Job ID: [id number]
[2019-09-01 04:05] LABS: Band 33 % (5-11); Lymphocytes 4 % (21-51); MDiff Complete? YES; Mean Corpuscular HGB CONC 31.8 g/dL (32.0-36.0); Mean Corpuscular Hemoglobin 29.2 pg (27.0-31.0); Mean Corpuscular Volume 91.6 fL (78.0-98.0); Mean Platelet Volume 9.9 fL (7.4-10.4); Monocytes 5 % (0-10); Neutrophil 58 % (42-75); Platelet Count 193 thou/uL (130-400); Platelet Morphology Comment Appears Adequate; RBC Distribution Width 13.3 % (11.5-14.5); Red Blood Cell (RBC) Count 3.77 mill/uL (4.20-5.40); White Blood Cell (WBC) Count 18.5 thou/uL (4.8-10.8)
[2019-09-01 04:13] LABS: ALT (SGPT) 13 U/L (8-55); AST (SGOT) 20 U/L (5-34); Albumin 2.9 g/dL (3.4-4.8); Alkaline Phosphatase 50 U/L (40-110); Anion Gap 12 mmol/L (10-20); BUN (Urea Nitrogen) 20 mg/dL (9.8-20.1); Bilirubin, Total 0.5 mg/dL (0.2-1.2); Calc. Creatinine Clearance 41 mL/min (70-130); Calcium 7.3 mg/dL (7.8-10.44); Carbon Dioxide 19 mmol/L (23-31); Chloride 108 mmol/L (98-107); Estimated GFR-MDRD 35; Globulin 2.2 g/dL (2.4-3.5); Glucose 114 mg/dL (80-115); Potassium 4.4 mmol/L (3.5-5.1); Protein, Total 5.1 g/dL (6.0-8.3); Sodium 135 mmol/L (136-145)
[2019-09-01] MEDS: Piperacillin/Tazobactam 4.5 GM in Sodium Chloride 0.9% 100 ML IVPB SCH ×5 (05:34→23:59)
[2019-09-01] MEDS: Ketorolac Tromethamine 30 MG/ML VIAL IVP SCH ×3 (05:34→17:44)
[2019-09-01] MEDS: Sodium Chloride 0.9% 1,000 ML IV SCH ×2 (07:14→11:54)
--- NOTE | 2019-09-01 08:13 | PRG ---
DATE OF SERVICE: 09/01/2019 SUBJECTIVE: Ms. Tracy is doing well today. She is in ICU. She is awake and alert. She reports diminished pain postoperatively. Her OUTSIDE SALES INSPECTOR is effective pain relief, fentanyl as she is allergic to morphine which causes a rash. OBJECTIVE: VITAL SIGNS: Heart rate 86, blood pressure 101/54, MAP 71, respiratory rate 19. Urine output has been 30 to 40 initially, but now over 300 to 400 per hour. IV fluids are 150 per hour. NG tube output is negligible. LUNGS: Clear to auscultation. CARDIAC: Regular rate and rhythm without murmur or gallop. ABDOMEN: Soft. Occasional bowel sounds, diminished, much softer. No guarding. EXTREMITIES: Unremarkable. LABORATORY DATA: This morning, her white count is 18,000, hemoglobin 11. Basic metabolic profile is improved with BUN of 20 and creatinine diminished to 1.51, sodium 135, potassium 4.4, calcium 7.3. ASSESSMENT AND PLAN: Status post ileocolonic anastomotic leak with prompt re-exploration and repair. The patient is doing well postoperatively. We will transfer the patient to the surgical floor. We will leave the NG tube and Adames today as she had 700 mL of urine out when the Adames was placed. We will remove the Adames in the morning. Continue NG tube output today. Hopefully, we can remove it later today or tomorrow. Await pathology. Job ID: [id number]
--- NOTE | 2019-09-01 08:23 | OP ---
DATE OF PROCEDURE: 09/01/2019 PREOPERATIVE DIAGNOSES: Status post right colectomy, laparoscopic for colon mass and polyp, now with postoperative abdominal pain with normal CTA and a normal CT abdomen and pelvis without contrast, however, persistent bandemia, leukocytosis, and hypotension. POSTOPERATIVE DIAGNOSES: Status post right colectomy, laparoscopic for colon mass and polyp, now with postoperative abdominal pain with normal CTA and a normal CT abdomen and pelvis without contrast, however, persistent bandemia, leukocytosis, and hypotension with anastomotic leak, ileocolic. PROCEDURES PERFORMED: Laparotomy, resection of ileocolic anastomosis and revision, abdominal washout, JAZMÍN wound VAC. ANESTHESIA: General. DESCRIPTION OF PROCEDURE: The patient was taken to the operating room, where under general anesthesia, Adames catheter was placed. Abdomen was prepared with ChloraPrep and draped in routine fashion. Midline incision was made and carried down to skin and subcutaneous tissue, midline fascia, and abdominal cavity sharply. Abdominal contents were unremarkable. Ileocolic anastomosis was brought into the wound and there was noted to be a small leak. For this reason, the terminal ileum and adjacent colon were resected, divided the mesenteries of the ileum and colon with the LigaSure and the ileum and colon with a JESUSITA stapler and revision anastomosis with 75 JESUSITA stapler performed. JESUSITA stapler was used to perform the anastomosis, defect closed with another fire of the JESUSITA stapler and tension sutures of 3-0 silk Lembert placed in staple line anteriorly, reinforced with interrupted Lembert sutures of 3-0 silk. Abdominal cavity was thoroughly irrigated with multiple liters of saline solution, irrigant evacuated, NG tube palpated in good position in the stomach. The patient tolerated the procedure well. Sponge, needle, and instrument counts were used. Our gloves were changed. Midline fascia was closed with #1 PDS. Skin and subcutaneous tissues were irrigated with saline. Skin and subcutaneous tissues were copiously irrigated and good hemostasis ensured and skin loosely approximated with velasquez and JAZMÍN suction dressing applied. Job ID: [id number]
[2019-09-01] MEDS: Pantoprazole 40 MG VIAL IVP SCH (08:35)
[2019-09-01] MEDS: Gabapentin 300 MG CAP PO SCH ×3 (08:35→19:56)
[2019-09-01] MEDS ORDERED: Aspirin 81 mg Enteric Coated Tablet PO SCH ×2 (09:00)
--- NOTE | 2019-09-01 09:17 | RAD ---
CHEST 1 VIEW: INDICATION: History of central line placement. COMPARISON: Prior exam dated 08/31/2019. FINDINGS: There is a left subclavian central venous catheter projecting in the region of the cavoatrial junctio n. No pneumothorax is demonstrated. Heart size is mildly prominent. Lungs are clear. Emphysematou s change is similar. No acute osseous abnormality is noted. IMPRESSION: Central venous catheter placement. POS: MELISSA
[2019-09-01] MEDS ORDERED: Glycopyrrolate 0.2 MG/ML 5 ML SYRINGE ONE (10:03)
[2019-09-01] MEDS ORDERED: PHENYLEPHRINE-NS 100 MCG/ML 10 ML SYRINGE ONE (10:03)
[2019-09-01] MEDS ORDERED: Ondansetron PF 4 MG/2 ML Vial ONE (10:03)
[2019-09-01] MEDS ORDERED: Succinylcholine Chloride 20 MG/ML 10 ml SYRINGE FS ONE (10:03)
[2019-09-01] MEDS ORDERED: Ketorolac Tromethamine 30 MG/ML VIAL ONE (10:03)
[2019-09-01] MEDS ORDERED: PROPOFOL 200 MG/20 ML VIAL ONE (10:03)
[2019-09-01] MEDS ORDERED: Rocuronium Bromide 10 MG/ML (10ML VIAL) ONE (10:03)
[2019-09-01] MEDS ORDERED: ePHEDrine/0.9% NaCl/PF SYRINGE 50 mg/10 ml ONE (10:03)
[2019-09-01] MEDS ORDERED: Dexamethasone 20 MG/5 ML VIAL ONE (10:03)
[2019-09-01] MEDS: Sodium Chloride 0.9% 500 ML IV SCH (11:54)
--- NOTE | 2019-09-01 12:15 | PRG ---
DATE OF SERVICE: 09/01/2019 SUBJECTIVE: The patient is seen and examined at the bedside. She does not have much complaints to offer. She feels better. OBJECTIVE: VITAL SIGNS: Blood pressure is 93/57, heart rate 100, respiratory rate is 24, O2 saturation is 98%. HEENT: She has NG tube in her left nostril. Her oral mucosa is dry. HEART: S1 and S2 normal. No S3. No S4. ABDOMEN: Somewhat distended. The noise I can hear is most likely secondary to NG tube suctioning. EXTREMITIES: No clubbing, cyanosis, or edema. NEUROLOGIC: She follows my commands. She moves her all 4 extremities. There are no motor or sensory deficits present. LABORATORY DATA: Show white count of 18.5, hemoglobin of 11.0, hematocrit 34.5, platelet count is 153,000. Sodium of 135, potassium 4.4, chloride 108, CO2 of 19, BUN 20, creatinine 1.51, calcium 7.3, albumin 2.9. Microbiology, none. IMPRESSION: 1. Hypotension postoperatively, which was caused by ileocolonic anastomotic leak with prompt re-exploration and repair by Dr. Hernandez yesterday. The patient's blood pressure was running between 90 and 100 systolic in the last 24 hours after she was given total of 2 L of normal saline. 2. I will give her bolus of normal saline 500 and continue her in the unit until she is more stable hemodynamically. We will continue her antibiotic which is Zosyn, and we will continue close monitoring. Her creatinine is down to 1.51 today from 1.69 yesterday, so that is improved. General surgeon will make decision about further treatment, but it looks like she does not need any surgical intervention at this point. Job ID: [id number]
--- NOTE | 2019-09-01 19:46 | CON ---
DATE OF CONSULTATION: HISTORY OF PRESENT ILLNESS: Ms. Tracy is a very pleasant 64-year-old female, who has had several months of difficulty after meals with abdominal cramping and abdominal pain. She had been seen by Dr. Conde in the past and was diagnosed with an ascending colon tumor. She tells me she could not get a scope through the partial obstruction. It looks like she had a colon segment resection on August 30. She had a drop in blood pressure and was taken back to the operating room. She had resection of an ileocolic anastomosis and revision and abdominal washout. She had not had an anastomotic leak. She says she feels great at this time and has no abdominal pain. She is examined in the ICU. PHYSICAL EXAMINATION: VITAL SIGNS: Blood pressures in the 80s to 90s. I have recommended that she get another fluid bolus. Heart rates in the 90s. She is in no distress. HEENT: Pupils are equal. Sclerae are anicteric. NECK: Supple. No lymphadenopathy. LUNGS: Clear. HEART: Regular rhythm. S1 and S2 are normal. ABDOMEN: Soft, surprisingly minimally tender. EXTREMITIES: Without clubbing, cyanosis, or edema. LABORATORY DATA: White count 18.5, hemoglobin 11.0, and platelets 193. Electrolytes remarkable for creatinine of 1.51, which is improved compared to yesterday. IMPRESSION: Peritonitis, now on antibiotics. I suspect she has some abdominal third-spacing. She actually looks better than most of people in the ICU. We will be happy to follow with the other physicians caring for while she is in the Critical Care Unit. TIME SPENT: This is a 50-minute consult, 50% of the time was spent on the unit coordinating care. Job ID: [id number]
[2019-09-01] MEDS: Enoxaparin Sodium 40 MG/0.4 ML SYRINGE SC SCH (19:56)
[2019-09-01] MEDS ORDERED: Enoxaparin Sodium 30 MG/0.3 ML SYRINGE SC SCH (21:00)
[2019-09-02] MEDS: Acetaminophen 500 MG TAB PO SCH ×5 (00:58→20:46)
[2019-09-02] MEDS: Sodium Chloride 0.9% 1,000 ML IV SCH ×2 (05:23→13:17)
[2019-09-02] MEDS: Ketorolac Tromethamine 30 MG/ML VIAL IVP SCH ×3 (05:23→13:13)
[2019-09-02] MEDS: Piperacillin/Tazobactam 4.5 GM in Sodium Chloride 0.9% 100 ML IVPB SCH ×3 (05:26→18:33)
[2019-09-02 05:38] LABS: #Eosinphils 0.1 thou/uL (0.0-0.7); #Monocytes 0.7 thou/uL (0.11-0.59); #Neutrophils 12.8 thou/uL (1.40-6.50); %Eosinophils 0.4 % (0.0-10.0); %Lymphocytes 12.7 % (21.0-51.0); %Monocytes 4.7 % (0.0-10.0); %Neutrophils 82.2 % (42.0-75.0); Hemoglobin 9.1 g/dL (12.0-16.0); Mean Corpuscular HGB CONC 33.2 g/dL (32.0-36.0); Mean Corpuscular Hemoglobin 30.7 pg (27.0-31.0); Mean Corpuscular Volume 92.3 fL (78.0-98.0); Mean Platelet Volume 9.4 fL (7.4-10.4); Platelet Count 173 thou/uL (130-400); RBC Distribution Width 13.5 % (11.5-14.5); Red Blood Cell (RBC) Count 2.95 mill/uL (4.20-5.40); White Blood Cell (WBC) Count 15.6 thou/uL (4.8-10.8)
[2019-09-02 06:07] LABS: ALT (SGPT) 12 U/L (8-55); AST (SGOT) 16 U/L (5-34); Albumin 2.5 g/dL (3.4-4.8); Alkaline Phosphatase 47 U/L (40-110); Anion Gap 9 mmol/L (10-20); BUN (Urea Nitrogen) 20 mg/dL (9.8-20.1); Bilirubin, Total 0.3 mg/dL (0.2-1.2); Calc. Creatinine Clearance 46 mL/min (70-130); Calcium 7.7 mg/dL (7.8-10.44); Carbon Dioxide 23 mmol/L (23-31); Chloride 113 mmol/L (98-107); Estimated GFR-MDRD 40; Globulin 2.4 g/dL (2.4-3.5); Glucose 80 mg/dL (80-115); Potassium 3.7 mmol/L (3.5-5.1); Protein, Total 4.9 g/dL (6.0-8.3); Sodium 141 mmol/L (136-145)
[2019-09-02] MEDS: Gabapentin 300 MG CAP PO SCH ×3 (09:00→20:46)
[2019-09-02] MEDS: Pantoprazole 40 MG VIAL IVP SCH (09:00)
--- NOTE | 2019-09-02 09:50 | PRG ---
DATE OF SERVICE: 09/02/2019 SUBJECTIVE: The patient is seen and examined at the bedside. She feels slightly better, but she is quite unsteady on her feet. OBJECTIVE: VITAL SIGNS: Blood pressure is 91/58, pulse is 82, temperature is 98.6, respiratory rate is 16, and O2 saturation is 94% on 2 L by nasal cannula. Her output of urine is 755, total intake was 3794, so balance is positive 3039. HEENT: Head is atraumatic and normocephalic. Eyes are PERRLA. Sclerae are nonicteric. Oral mucosa is slightly dry. NECK: Supple. LUNGS: Clear. HEART: S1 and S2 normal. No S3. No S4. ABDOMEN: Mildly distended. Dressing is in place. Bowel sounds present, sluggish. It is tender to palpation. EXTREMITIES: No clubbing, cyanosis or edema. NEUROLOGICAL: She is following my commands. She is moving her all 4 extremities. LABORATORY DATA: White count 15.6, hemoglobin 9.1, hematocrit 27.2, and neutrophils 82.2. Sodium 141, potassium 3.7, chloride 113, CO2 of 23, BUN 20, and creatinine 1.34. Total protein 4.9. Albumin 2.5. IMPRESSION: 1. Peritonitis secondary to postoperative leak. 2. Postoperative ileocolonic anastomotic leak, status post reexploration and repair. 3. Anemia, normocytic. Hemoglobin jumped from 11 to 9.1. 4. Hypotension. She was giving IV fluids bolus yesterday and she is on 100 mL of IV fluids per hour. At this point, it does not look like she requires more boluses and the case was discussed with Dr. Hernandez, who prefers not to use more fluids. Her renal insufficiency is improving. 5. Renal insufficiency. Creatinine is down to 1.34 today with IV fluids from 1.51 yesterday. PLAN: Plan is to continue her Zosyn, continue pain management, and continue PPI. Job ID: [id number]
[2019-09-02] MEDS ORDERED: traMADol HCl 50 MG TAB PO PRN (13:48)
[2019-09-02] MEDS ORDERED: Ibuprofen 600 MG TAB PO PRN (13:48)
--- NOTE | 2019-09-02 14:11 | PRG ---
DATE OF SERVICE: 09/02/2019 SUBJECTIVE: Evelyn Tracy is doing well after laparoscopic right colectomy with 36 hours later open revision ileocolic anastomosis resection and reanastomosis. Pathology reveals T3 N0 M0, 5 cm tumor, 23 negative nodes, right colon cancer, cecal. She will need a followup colonoscopy in 1 year. I will arrange outpatient Oncology opinion, although it is likely she will not need any adjunctive therapy. The patient is tolerating liquids and has had bowel movements. 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 We will advance her to regular diet tomorrow. OBJECTIVE: LUNGS: Clear to auscultation. CARDIAC: Regular rate and rhythm without murmur or gallop. ABDOMEN: Soft, nondistended, non-tympanitic, nontender. Bowel sounds present. JAZMÍN wound VAC in place. The patient is doing well. Job ID: [id number]
[2019-09-02] MEDS: Enoxaparin Sodium 40 MG/0.4 ML SYRINGE SC SCH (20:46)
[2019-09-03] MEDS: Piperacillin/Tazobactam 4.5 GM in Sodium Chloride 0.9% 100 ML IVPB SCH ×2 (00:09→05:06)
[2019-09-03] MEDS: Acetaminophen 500 MG TAB PO SCH ×2 (03:30→09:04)
[2019-09-03] MEDS: traMADol HCl 50 MG TAB PO PRN ×2 (05:07→11:46)
[2019-09-03 05:32] LABS: #Basophils 0.1 thou/uL (0.0-0.2); #Eosinphils 0.2 thou/uL (0.0-0.7); #Lymphocytes 2.1 thou/uL (1.20-3.40); #Monocytes 0.7 thou/uL (0.11-0.59); #Neutrophils 12.7 thou/uL (1.40-6.50); %Basophils 0.3 % (0.0-1.0); %Eosinophils 1.6 % (0.0-10.0); %Lymphocytes 13.3 % (21.0-51.0); %Monocytes 4.5 % (0.0-10.0); %Neutrophils 80.3 % (42.0-75.0); Hemoglobin 9.2 g/dL (12.0-16.0); Mean Corpuscular Hemoglobin 29.6 pg (27.0-31.0); Mean Corpuscular Volume 92.4 fL (78.0-98.0); Mean Platelet Volume 9.3 fL (7.4-10.4); Platelet Count 224 thou/uL (130-400); RBC Distribution Width 13.6 % (11.5-14.5); White Blood Cell (WBC) Count 15.9 thou/uL (4.8-10.8)
[2019-09-03 05:57] LABS: Anion Gap 8 mmol/L (10-20); BUN (Urea Nitrogen) 17 mg/dL (9.8-20.1); Calc. Creatinine Clearance 46 mL/min (70-130); Calcium 7.9 mg/dL (7.8-10.44); Carbon Dioxide 24 mmol/L (23-31); Chloride 116 mmol/L (98-107); Estimated GFR-MDRD 39; Glucose 82 mg/dL (80-115); Potassium 3.5 mmol/L (3.5-5.1); Sodium 144 mmol/L (136-145)
[2019-09-03] MEDS: Gabapentin 300 MG CAP PO SCH (09:05)
[2019-09-03 10:51] VITALS: BP 96/61; TEMP 98
--- NOTE | 2019-09-03 11:57 | PRG ---
DATE OF SERVICE: 09/03/2019 SUBJECTIVE: Evelyn Tracy is doing well today. She is tolerating diet. She has had normal bowel movements. She is tolerating a regular diet. OBJECTIVE: LUNGS: Clear to auscultation. CARDIAC: Regular rate and rhythm without murmur, rub, or gallop. ABDOMEN: Soft, nontender. JAZMÍN suction VAC removed. Wound is intact. There are a few blisters around the umbilicus and these were ruptured and the wound looks good. EXTREMITIES: Unremarkable. Central line dressing intact. LABORATORY DATA: This morning, her white count is 15, hemoglobin 9.2. Basic metabolic profile is normal. ASSESSMENT AND PLAN: The patient is doing well. Her pathology demonstrates a T3 N0 M0 cancer. The resected specimen does not reveal any residual polyp or tumor. At this point, she is ready for discharge home. She will be sent home with Augmentin 875 p.o. b.i.d. for 5 days. Pain control will consist of [id number] Tylenol and Motrin, and I have given her a prescription for Ultram for breakthrough pain. She can take Tylenol and Motrin together. She should not lift over 25 to 30 pounds. She has an appointment to see both myself and Dr. Cortes next week to discuss Oncology recommendations. With a T3 tumor, adjunctive chemotherapy is equivocal. I have talked to her about the importance of colonoscopy screening with her siblings and children. It is discovered on this occasion that her grandmother had colon cancer. The patient's sister was present during the discussions. Job ID: [id number]
--- NOTE | 2019-09-03 13:01 | DIS ---
DATE OF ADMISSION: 08/30/2019 DATE OF DISCHARGE: 09/03/2019 DISCHARGE DIAGNOSES: 1. T3 N0 M0 right colon cancer. 2. Two days postoperative status post leak with resection of ileocolic anastomosis and revision and a small open incision. JAZMÍN incisional wound VAC removed prior to discharge. Discharge hemoglobin 9, white count 15, sent home on Augmentin 875 p.o. b.i.d. for 5 days. Pain control, Tylenol, ibuprofen [id number] with Ultram #40 two refills written for breakthrough pain. No lifting over 25 pounds for 6 weeks. The patient appointment with Dr. Cortes and myself next week. INSTRUCTIONS: She can shower and bathe, wash the wound with soap and water, leave the wound open, covered with p.r.n. soilage, Band-Aid or dry dressing or . HISTORY: A 64-year-old female presenting with abdominal pain, undergoing CAT scan last year suggesting inflammatory process in the cecum. She is seen by Dr. Long, GI and instructions to follow up with him as an outpatient. However, she did not follow through. She canceled appointment in July. She followed up with him in August. Colonoscopy revealed the above-mentioned tumor. She was sent to my office, where she was given a bowel prep and outpatient surgery scheduled. The patient presented with a general anesthesia and TAP block for a laparoscopic right colectomy, which went well. On second day postop, she developed in the evening, hypotension, tachycardia with slight increased pain. She underwent a CT angiogram negative for PE. CT scan of the abdomen and pelvis that was negative for any findings and read out as postoperative findings; however, with her hypertension, tachycardia, leukocytosis and left shift and her having more abdominal pain than expected. At this point, she was taken to the operating room and a small upper abdominal laparotomy made. I discovered a small leak at the staple line mostly air. There was no enteric contamination. There was some inflammatory exudate around the area of the anastomosis, but she did not have enteric peritonitis. Abdominal cavity was washed out and ileocolic anastomosis resected and revised. Reanastomosis performed and reinforced with sutures. Postoperatively, the wound vigorously irrigated and closed loosely with velasquez and wound suction device applied, removed prior to discharge. Central line was also applied. Postoperatively, she did well. She has been discharged home at this time with that regimen. Job ID: [id number]
[2019-09-03] MEDS ORDERED: Amoxicillin/Potassium Clav 875 MG TAB PO SCH (21:00)
--- NOTE | 2019-09-05 23:59 | EKG ---
Test Reason : Blood Pressure : / mmHG Vent. Rate : 109 BPM Atrial Rate : 109 BPM P-R Int : 164 ms QRS Dur : 078 ms QT Int : 332 ms P-R-T Axes : 068 027 048 degrees QTc Int : 447 ms Sinus tachycardia Low voltage QRS Cannot rule out Anterior infarct (cited on or before 27-AUG-2019) Abnormal ECG When compared with ECG of 27-AUG-2019 13:43, (Unconfirmed) No significant change was found Confirmed by Fede TOVAR ([id number]) on 09/05/2019 11:58:44 PM Referred By: Olesya CAUSEY Confirmed By:Fede TOVAR
--- NOTE | 2019-09-06 01:02 | PQF ---
MARIIA WHITTEN RICHARD D MD [id number] [facility] A- 330 [id number] CLINICAL DOCUMENTATION CLARIFICATION FORM: POST DISCHARGE Addendum to original discharge summary date: ____ Late entry note date: __ DATE: 09/06/2019 ATTN: Blane Hernandez Please exercise your independent, professional judgment in responding to the clarification form. Clinical indicators are provided on the bottom of this form for your review Please check appropriate box(s): [ ] Acute blood loss anemia [ ] Anemia due to acute blood loss [ ] Chronic blood loss anemia [ ] Other diagnosis [ ] Unable to determine In addition, please specify: Present on Admission (POA): [ ] Yes [ ] No [ ] Unable to determine For continuity of documentation, please document condition throughout progress notes and discharge summary. Thank You. CLINICAL INDICATORS - SIGNS / SYMPTOMS / LABS HP 08/31 "anemia with hgb 11-12 range" PN 09/02 "anemia normocytic. Hemoglobin jumped from 11 to 9.1" HP 08/31 "BP dropped around 100/60 to 80/50 patient also tachycardic and developed hypoxia" HP 08/31 "hypotension" Labs RBC: 08/31=3.49 09/01=3.77 09/02=2.95 09/03=3.10 Labs Hgb: 08/31=10.4 09/01=11.0 09/02=9.1 09/03=9.2 Labs Hct: 08/31=31.5 09/01=34.5 09/02=27.2 09/03=28.7 RISK FACTORS HP 08/31-64 years old HP 08/31-s/p Lap colectomy HP 08/31-Smoker OP Note 09/01-s/p laparotomy resection of anastomosis DS 09/03-Colon cancer TREATMENTS: HP 08/31-Oxygen HP 08/31-IVF Consult 09/01-Admit to ICU DS 09/03-CVC Collected 08/31-Hematology monitoring (This form is maintained as a part of the permanent medical record) 2014 [employer], [employer]. All Rights Reserved [email or web address]
--- NOTE | 2019-09-06 01:06 | PQF ---
MARIIA WHITTEN RICHARD D MD [id number] [facility] A- 3302 [id number] CLINICAL DOCUMENTATION CLARIFICATION FORM: POST DISCHARGE Addendum to original discharge summary date: ____ Late entry note date: __ DATE: 09/06/2019 ATTN: Blane Hernandez Please exercise your independent, professional judgment in responding to the clarification form. Clinical indicators are provided on the bottom of this form for your review Please check appropriate box(s): [ ] Acute respiratory failure due to an existing co-morbid condition: [ ] Acute on chronic respiratory failure due to an existing co-morbid condition : [ ] Acute respiratory failure related to the surgical procedure [ ] Acute on chronic respiratory failure related to the surgical procedure [ ] Respiratory insufficiency due to an existing co-morbid condition: [ ] Respiratory insufficiency due to the surgical procedure [ ] Hypoxia only [ ] Other diagnosis [ ] Unable to determine For continuity of documentation, please document condition throughout progress notes and discharge summary. Thank You. CLINICAL INDICATORS - SIGNS / SYMPTOMS / LABS HP 08/31 "BP dropped around 100/60 to 80/50 patient also tachycardic and developed hypoxia" 08/31 "underwent a lap colon resection" Vital signs Respi: 08/30=20 08/3118=816 09/01=16 09/02=16 09/03=14 Vital signs O2 sat: 08/30=92 08/31=92 09/01=90 09/02=93 09/03=92 RISKS FACTORS HP 08/31-64 years old HP 08/31-s/p Lap colectomy HP 08/31-Smoker OP Note 09/01-s/p laparotomy resection of anastomosis HP 08/31-COPD TREATMENT: HP 08/31-Oxygen HP 08/31-IVF Consult 09/01-Admit to ICU DS 09/03-CVC Collected 08/31-Laboratory monitoring Collected 09/01-Chest Xray (This form is maintained as a part of the permanent medical record) 2014 [employer], [employer]. All Rights Reserved [email or web address] [phone] TATYANA
== END 2019-09-03 13:00 | disposition home or self-care (01) | DRG 329 ==
LOC: SURG A 05:50 → EDSTATUS 13:48 → CCU 09-01 02:25 → SURG B 09-01 18:48
PROVIDERS: ADMIT Specialist; ATTEND Specialist
PROC: 0DBF4ZZ Excision of Right Large Intestine, Percutaneous Endoscopic Approach (ICD-10-PCS; principal; 2019-08-30)
PROC: 02HV33Z Insertion of Infusion Device into Superior Vena Cava, Percutaneous Approach (ICD-10-PCS; 2019-09-01)
PROC: 0DBK0ZZ Excision of Ascending Colon, Open Approach (ICD-10-PCS; 2019-09-01)
PROC: 0DBB0ZZ Excision of Ileum, Open Approach (ICD-10-PCS; 2019-09-01)
DX: C18.2 Malignant neoplasm of ascending colon (principal); K65.9 Peritonitis, unspecified; N17.9 Acute kidney failure, unspecified; K91.89 Other postprocedural complications and disorders of digestive system; J44.9 Chronic obstructive pulmonary disease, unspecified; C69.91 Malignant neoplasm of unspecified site of right eye; E78.5 Hyperlipidemia, unspecified; D64.9 Anemia, unspecified; F17.200 Nicotine dependence, unspecified, uncomplicated; R09.02 Hypoxemia; D72.825 Bandemia; Y83.8 Other surgical procedures as the cause of abnormal reaction of the patient, or of later complication, without mention of misadventure at the time of the procedure; Z88.5 Allergy status to narcotic agent; Z98.51 Tubal ligation status
CPT/HCPCS: 36415; 36416; 71045; 71275; 74176; 74177; 80048; 80053; 82378; 83036; 83605; 83690; 84484; 85025; 86850; 86900; 86901; 87040; 88307; 88309; 93005; 93010; 96374; 96375; C9113; J0670; J0694; J0696; J1100; J1170; J1650; J1885; J2001; J2250; J2270; J2405; J2543; J2704; J3010; J3490; Q9967; S0020

== ENCOUNTER 2019-09-15 07:40 | Outpatient (CLI) | payer BC, MEDICARE ==
--- NOTE | 2019-09-15 09:51 | CT ---
CT OF NECK AND CHEST AND ABDOMEN AND PELVIS: DATE: 09/15/2019. COMPARISON: 08/31/2019. HISTORY: Colon cancer. Surgery 3 weeks ago. TECHNIQUE: Axial CT imaging at 5 mm intervals through the chest, abdomen, and pelvis and at 2.5 mm intervals thr ough the neck with IV and oral contrast. Coronal and sagittal 3D reformatted imaging obtained. FINDINGS: CT NECK: The imaged paranasal sinuses and mastoid air cells are well aerated. The retroantral and parapharyng eal fat is clear bilaterally. The parotid glands, submandibular glands, tonsillar pillars, epiglotti s, and preepiglottic fat, hyoid bone, thyroid cartilage, cricoid cartilage, and level of the glottic demonstrate no acute findings. There are nonspecific bilateral thyroid hypodense nodules for which t hyroid ultrasound is suggested. No enlarged lymph nodes are seen within the neck. Scattered subcentimeter lymph nodes are noted with in the neck bilaterally including the posterior triangle and level II bilaterally. There is a slight ly irregular-appearing node measuring 7 mm in short axis dimension on the left posterior to the inter nal jugular vein at the axial level of the thyroid gland. Followup imaging may be beneficial. The v ascular structures of the neck appear unremarkable. Multilevel degenerative change noted within the cervical spine, most prominent on the left at C5-6. CT OF CHEST, ABDOMEN, AND PELVIS: No axillary, hilar, or mediastinal lymphadenopathy. Vascular structures of chest appear patent. There is no pneumothorax noted on either side. Bilateral upper lobe emphysematous changes are presen t. There is a nonspecific 4-5 mm nodule within the left upper lobe on image 16, stable. No pulmonary parenchymal mass lesion or nodule is noted within the left lower lobe. There is a small nodule also noted within the right middle lobe on axial image 43 measuring 5 mm. No additional pulm onary parenchymal mass lesion or nodule is noted on the right. Osseous structures of the chest demonstrate no acute findings. No free intraperitoneal air is noted. There is a stable nonspecific hypodense nodule within the central aspect of the liver on the right on axial image 52 measuring 1.2 cm with Hounsfield units greater than that expected for a simple cyst. The spleen, gallbladder, pancreas, adrenal glands, and kidneys are grossly unremarkable. Cutaneous velasquez are noted anteriorly. There is small volume nonspecific free fluid in the pelvic cul-de-sac posteriorly/laterally on the le ft. There is nonspecific wall thickening of the sigmoid colon with extensive associated diverticulos is. This may be on the basis of underdistension. Mild degree of diverticulitis cannot be excluded. The patient is status post right hemicolectomy when compared to the prior examination. There is no e vidence for bowel obstruction. No retroperitoneal lymphadenopathy. No enlarged nodes are noted within the pelvis. There is atheros clerotic calcification of the infrarenal abdominal aorta. Review of the osseous structures of the abdomen/pelvis demonstrate no worrisome lytic or blastic bone lesions. There is lower lumbar spine facet hypertrophy. IMPRESSION: 1. Mildly prominent lymph node within the neck inferiorly on the left at the axial level of the thyr oid gland for which followup CT is suggested. Configuration of this node is somewhat abnormal but it is not enlarged. 2. Multiple thyroid nodules for which thyroid ultrasound is suggested. 3. Small left upper lobe nodule and right middle lobe nodule for which followup CT in 3 months is ad vised. 4. Centrilobular emphysema. 5. Nonspecific small hypodense lesion within the right lobe of the liver for which followup imaging or PET CT is advised. 6. Status post right hemicolectomy. 7. Mild wall thickening of the sigmoid colon with associated diverticulosis. Findings may be on the basis of underdistension. Mild degree of inflammatory change on the basis of diverticulitis cannot be excluded. POS: MELISSA
[2019-09-15] MEDS ORDERED: Iopamidol 370 76% 100 ML VIAL ONE (16:01)
== END 2019-09-15 07:41 | disposition home or self-care (01) ==
LOC: CT 07:40
PROVIDERS: ATTEND Internal Medicine Hematology & Oncology
DX: C18.2 Malignant neoplasm of ascending colon (principal); C18.3 Malignant neoplasm of hepatic flexure; R59.0 Localized enlarged lymph nodes; F17.210 Nicotine dependence, cigarettes, uncomplicated; E04.2 Nontoxic multinodular goiter; R91.8 Other nonspecific abnormal finding of lung field; J43.2 Centrilobular emphysema; K76.9 Liver disease, unspecified; K57.30 Diverticulosis of large intestine without perforation or abscess without bleeding; Z90.49 Acquired absence of other specified parts of digestive tract
CPT/HCPCS: 70491; 71260; 74177; Q9967

== ENCOUNTER 2019-09-21 09:42 | Outpatient (CLI) | payer BC, MEDICARE ==
--- NOTE | 2019-09-21 14:07 | PET ---
Radionucleotide PET scan with CT attenuation correction HISTORY: Right colon cancer. Liver mass. Cervical lymph nodes. Initial staging. COMPARISON: CT 09/15/2019. FINDINGS: Physiologic uptake of radiotracer throughout the enteric system and along each urinary trac t. Muscular uptake at the lower thoracic paraspinal level. No abnormal uptake is apparent along either side of the neck or around the thyroid gland. No abnormal uptake is seen within the liver, with particular attention paid at the central dome of th e left liver lobe in region of lesion on recent CT scan. Activity in the right abdomen fat and the abdominal wall/subcutaneous tissues from recent surgery is evident without hypermetabolic mass evident. IMPRESSION: No evidence of metastatic disease.
--- NOTE | 2019-09-21 15:02 | ULT ---
THYROID ULTRASOUND: 09/21/19 HISTORY: Thyroid nodules noted on CT examination. Real time imaging of the right and left lobes of the thyroid gland were performed. The right lobe thien sures 2.5 x 4.4 x 2 cm. Left lobe 2.1 x 1.4 x 4.1 cm. Bilateral thyroid nodules are noted. Some of these are cystic or complex cystic. The largest on the r ight is 1.2 cm and a complex cystic lesion. On the left side, there is an 8 x 12 mm nodule essentially isoechoic to surrounding thyroid tissue. W ell circumscribed wider than tall with no internal calcifications. This would correspond to a TI-RADS 3 lesion for which no follow-up would be required as it is less than 1.5 cm in size. A second solid nodule in the lower pole region has one measurement that does go to the 1.5 cm range. Also A TI-RADS 3 lesion. This would be recommended follow-up at one year. IMPRESSION: TI-RADS 3 lesions of the left lobe of the thyroid. Follow-up in one year would be recommended. POS: MELISSA
== END 2019-09-21 09:43 | disposition home or self-care (01) ==
LOC: PET 09:42 → BICULT 09:43
PROVIDERS: ATTEND Internal Medicine Hematology & Oncology
DX: E04.2 Nontoxic multinodular goiter (principal); C18.2 Malignant neoplasm of ascending colon; F17.210 Nicotine dependence, cigarettes, uncomplicated; C22.9 Malignant neoplasm of liver, not specified as primary or secondary
CPT/HCPCS: 76536; 78815; A9552

== ENCOUNTER 2019-10-14 10:34 | Outpatient (CLI) | payer BC, MEDICARE ==
--- NOTE | 2019-10-14 11:19 | MMO ---
Bilateral MAMMO Bilat Screen [facility]. CLINICAL HISTORY: Patient is 64 years old and is seen for screening. The patient has no family history of breast cancer. The patient has no personal history of cancer. VIEWS: The views performed were: bilateral craniocaudal with tomosynthesis and bilateral mediolateral oblique with tomosynthesis. This study has been interpreted with the assistance of computer-aided detection. MAMMOGRAM FINDINGS: There are scattered fibroglandular densities. There are no suspicious masses, suspicious calcifications, or new areas of architectural distortion. IMPRESSION: THERE IS NO MAMMOGRAPHIC EVIDENCE OF MALIGNANCY. A ROUTINE FOLLOW-UP MAMMOGRAM IN 1 YEAR IS RECOMMENDED. THE RESULTS OF THIS EXAM WERE SENT TO THE PATIENT. ACR BI-RADS Category 1 - Negative MAMMOGRAPHY NOTE: 1. A negative mammogram report should not delay a biopsy if a dominant of clinically suspicious mass is present. 2. Approximately 10% to 15% of breast cancers are not detected by mammography. 3. Adenosis and dense breasts may obscure an underlying neoplasm. Reported by: TAINA VILLELA MD Electonically Signed: [id number]
== END 2019-10-14 10:35 | disposition home or self-care (01) ==
LOC: BICMAMMO 10:34
PROVIDERS: ATTEND Internal Medicine Hematology & Oncology
DX: Z12.31 Encounter for screening mammogram for malignant neoplasm of breast (principal)
CPT/HCPCS: 77063; 77067

== ENCOUNTER 2019-10-18 09:46 | Outpatient (CLI) | payer BC, MEDICARE ==
--- NOTE | 2019-10-18 10:24 | ULT ---
Sonogram right upper quadrant HISTORY: Right upper quadrant pain. FINDINGS: Gallbladder has normal appearance without stones. Common duct is 0.2 cm. Liver has normal appearance. No focal mass or intrahepatic biliary dilatation. No free fluid. IMPRESSION: Normal exam. Gallstones not seen. The hyperdense material within the gallbladder lumen on the CT from 08/31/2019 was originally thought to be gallstones, but in retrospect represented excretion of previously administered IV contrast. CT exams since that time have not shown persistent gallstones. Patient should be considered free of gallstones.
== END 2019-10-18 09:47 | disposition home or self-care (01) ==
LOC: SCSULT 09:46
PROVIDERS: ATTEND Specialist
DX: R10.11 Right upper quadrant pain (principal)
CPT/HCPCS: 76705

== ENCOUNTER 2019-11-10 07:37 | Outpatient (CLI) | payer BC, MEDICARE ==
--- NOTE | 2019-11-10 11:10 | NM ---
EXAM: NM Hida Scan W Drug PROVIDED CLINICAL HISTORY: Right upper quadrant abdominal pain usually after eating. COMPARISON: None FINDINGS: There is prompt uptake and excretion of radiotracer by the liver. Bowel activity is faintly visualize d by 20 minutes with faint activity in the gallbladder at 25 minutes. There is increasing activity in the bowel and in the gallbladder imaging up to 60 minutes. After 60 minutes of imaging, 8 ounces o f ensure was administered. A gallbladder ejection fraction of 54% was obtained. Normal gallbladder ejection fraction is greater than 33%. IMPRESSION: 1. No evidence of a cystic or common duct obstruction. 2. Normal gallbladder ejection fraction.
== END 2019-11-10 07:38 | disposition home or self-care (01) ==
LOC: NM 07:37
PROVIDERS: ATTEND Specialist
DX: R10.11 Right upper quadrant pain (principal)
CPT/HCPCS: 78227; A9537

== ENCOUNTER 2020-04-07 06:30 | Outpatient (CLI) | payer BC, MEDICARE, OTHER ==
[2020-04-07 16:19] LABS: #Basophils 0.1 thou/uL (0.0-0.2); #Eosinphils 0.1 thou/uL (0.0-0.7); #Lymphocytes 3.7 thou/uL (1.20-3.40); #Monocytes 0.6 thou/uL (0.11-0.59); #Neutrophils 5.2 thou/uL (1.40-6.50); %Basophils 0.8 % (0.0-1.0); %Eosinophils 1.5 % (0.0-10.0); %Lymphocytes 38.2 % (21.0-51.0); %Monocytes 6.4 % (0.0-10.0); %Neutrophils 53.1 % (42.0-75.0); Hemoglobin 14.7 g/dL (12.0-16.0); Mean Corpuscular HGB CONC 32.5 g/dL (32.0-36.0); Mean Corpuscular Hemoglobin 30.7 pg (27.0-31.0); Mean Corpuscular Volume 94.3 fL (78.0-98.0); Mean Platelet Volume 9.2 fL (7.4-10.4); Platelet Count 262 thou/uL (130-400); RBC Distribution Width 12.6 % (11.5-14.5); Red Blood Cell (RBC) Count 4.78 mill/uL (4.20-5.40); White Blood Cell (WBC) Count 9.8 thou/uL (4.8-10.8)
[2020-04-07 17:02] LABS: ALT (SGPT) 15 U/L (8-55); AST (SGOT) 20 U/L (5-34); Albumin 4.3 g/dL (3.4-4.8); Alkaline Phosphatase 115 U/L (40-110); Anion Gap 14 mmol/L (10-20); BUN (Urea Nitrogen) 27 mg/dL (9.8-20.1); Bilirubin, Total 0.3 mg/dL (0.2-1.2); Calc. Creatinine Clearance 0 mL/min (70-130); Carbon Dioxide 25 mmol/L (23-31); Chloride 105 mmol/L (98-107); Estimated GFR-MDRD 51; Globulin 2.8 g/dL (2.4-3.5); Glucose 72 mg/dL (80-115); Potassium 4.7 mmol/L (3.5-5.1); Protein, Total 7.1 g/dL (6.0-8.3); Sodium 139 mmol/L (136-145)
[2020-04-08 12:20] LABS: SARS-CoV-2 MS2 Positive; SARS-CoV-2 N Gene Negative; SARS-CoV-2 S Gene Negative; SARS-CoV-2 by NAA Not Detected (NotDetected); SARS-CoV-2 orf1ab Negative
== END 2020-04-07 06:31 | disposition home or self-care (01) ==
LOC: LABBT 06:30
PROVIDERS: ATTEND Specialist
DX: Z01.818 Encounter for other preprocedural examination (principal); Z20.828 Contact with and (suspected) exposure to other viral communicable diseases; K43.2 Incisional hernia without obstruction or gangrene
CPT/HCPCS: 80053; 85025; 87635; 93005; 93010; U0003

== ENCOUNTER 2020-04-12 05:55 | Day surgery (SDC) | payer BC, MEDICARE ==
[2020-04-07 12:37] VITALS: BMI 25.7
--- NOTE | 2020-04-11 09:25 | HP ---
HISTORY OF PRESENT ILLNESS: Evelyn Tracy is a 65-year-old female, status post right colon resection on 08/30/2019. The patient has developed an incisional hernia in her upper abdomen above her umbilicus. We will plan robot mesh repair as outpatient. She understands risks and benefits and consents. The patient had a right hemicolectomy with tumor size of 6 cm in ascending colon invading through the muscularis propria into the subserosal adipose tissue in close proximity to the serosal surface T3 (less than 1 mm from the serosal surface) N0 M0. During that operation, the patient was returned to the operation on 09/01/2019 one day postoperatively for revision of the anastomosis due to persistent bandemia, leukocytosis and hypotension, and a new anastomosis performed. Residual ileocolic area did not show any residual tumor and postoperatively she did well. She is status post upper endoscopy and lower endoscopy performed by Dr. Conde on December 15, 2019. Pathology revealing no H pylori on the gastric biopsies and hyperplastic polyp. She is started on PPIs, controlling her reflux. She has been followed closely by Dr. Cortes. She underwent a CAT scan recently on 03/21/2020 of chest, abdomen and pelvis revealing incisional hernia above the umbilicus. No evidence of malignancy was noted. A segment of non-obstructed transverse colon noted to be in the hernia sac area. Right hepatic lobe suspect cyst and reticular nodular area in the medial right middle lobe, suspicious for mucus plugging and repeat CAT scan planned. The patient's CEA level in August preoperatively was 8.64, postoperatively 4.4, and postoperatively has remained at 10 to 11. ALLERGIES: MORPHINE. HABITS: Tobacco, none. Alcohol, none. Smoked about half a pack a day in the past. MEDICATIONS: Protonix 40 mg a day. PAST MEDICAL HISTORY: Colon resection in August as noted, otherwise unremarkable. Up-to-date on colonoscopies, EGDs, and tubal ligation in the past. PHYSICAL EXAMINATION: VITAL SIGNS: Weight 150 pounds, height 65 inches, 24 BMI, blood pressure 134/61, pulse 92, and temperature 98.1 degrees. HEAD, EARS, EYES, NOSE, AND THROAT: Unremarkable. LUNGS: Clear to auscultation. CARDIAC: Regular rate and rhythm. No murmur or gallop. ABDOMEN: Soft and nontender. Upper midline wound above the umbilicus. There is a hernia defect. This is reducible. EXTREMITIES: Unremarkable. ASSESSMENT/PLAN: 1. History of right colon cancer, persistently elevated CEA level of 10 to 11. Continue to follow up with Dr. Cortes. 2. Incisional hernia. Plan robot mesh repair outpatient. She understands risks and benefits. 3. Nodule, right middle lobe. Followup CAT scan, probably mucus plugging. 4. History of tobacco use, currently occasional use. 5. Followed by Dr. Cortes. 6. Followed by GI, Dr. Conde. 7. Gastroesophageal reflux disease. Continue with PPI. Job ID: [id number]
[2020-04-12] MEDS ORDERED: Gabapentin 300 MG CAP ONE (06:08)
[2020-04-12] MEDS ORDERED: Acetaminophen 500 MG TAB ONE (06:08)
[2020-04-12] MEDS ORDERED: Ketorolac Tromethamine 30 MG/ML VIAL ONE ×2 (06:08→13:53)
[2020-04-12] MEDS ORDERED: Lidocaine 1% w/Epinephrine 1:100K 20 ML VIAL ONE (06:40)
[2020-04-12] MEDS ORDERED: Bupivacaine 0.25% HCL 30 ML VIAL ONE (06:40)
[2020-04-12] MEDS ORDERED: SUGAMMADEX SODIUM 200 MG/2 ML VIAL ONE (07:00)
[2020-04-12] MEDS ORDERED: Fentanyl 250 MCG/5 ML VIAL ONE (07:00)
[2020-04-12] MEDS ORDERED: Phenylephrine 10 MG/ML VIAL ONE (07:56)
[2020-04-12] MEDS ORDERED: Fentanyl 100 MCG/2 ML VIAL ONE ×4 (09:58→13:53)
[2020-04-12] MEDS ORDERED: Lidocaine 1% PF 5 ML VIAL ONE (10:42)
[2020-04-12] MEDS ORDERED: Esmolol 100 MG/10 ML VIAL ONE (10:42)
[2020-04-12] MEDS ORDERED: Ondansetron PF 4 MG/2 ML Vial ONE (10:42)
[2020-04-12] MEDS ORDERED: PROPOFOL 200 MG/20 ML VIAL ONE (10:42)
[2020-04-12] MEDS ORDERED: Dexamethasone 20 MG/5 ML VIAL ONE (10:42)
[2020-04-12] MEDS ORDERED: Albuterol Sulfate HFA (OR ONLY) ONE (10:42)
[2020-04-12] MEDS ORDERED: Glycopyrrolate 0.2 MG/ML 5 ML SYRINGE ONE (10:42)
[2020-04-12] MEDS ORDERED: PHENYLEPHRINE-NS 100 MCG/ML 10 ML SYRINGE ONE (10:42)
[2020-04-12] MEDS ORDERED: Rocuronium Bromide 10 MG/ML (10ML VIAL) ONE (10:42)
[2020-04-12] MEDS ORDERED: HYDROcodone/Acetaminophen 5/325 mg Tablet ONE (11:58)
[2020-04-12] MEDS ORDERED: Promethazine HCl 25 MG/ML VIAL ONE (12:45)
--- NOTE | 2020-04-12 14:02 | OP ---
DATE OF PROCEDURE: 04/12/2020 PREOPERATIVE DIAGNOSIS: Incisional hernia from previous colon resection and incisional hernia above the umbilicus, midline. POSTOPERATIVE DIAGNOSIS: Incisional hernia from previous colon resection and incisional hernia above the umbilicus, midline. PROCEDURE PERFORMED: Robot laparoscopic repair of incisional hernia with an 11-cm Ventralight mesh reinforcement of primary fascial repair. ANESTHESIA: General, local 0.5% Marcaine, 30 mL mixed with 1% Xylocaine with epinephrine 20 mL, total volume used. DESCRIPTION OF PROCEDURE: The patient was taken to the operating room where general anesthesia, Adames catheter placed at the beginning of the procedure and removed at the end. Abdomen was prepared with ChloraPrep and draped in routine fashion. Local anesthetic mixture was infiltrated into the skin and subcutaneous tissue about the operative sites, ports, and around the area of the incisional hernia. Right lateral subcostal incision made. Pneumoperitoneum to 15 mmHg obtained with a Veress needle, replaced it with 8-mm port. Videolaparoscope inserted, and a right lateral mid abdominal incision made, and 11-mm balloon port placed, and a right lower quadrant incision made, 8-mm port placed. Robot docked, positioned, and robot incisional hernia repair undertaken by taking down adhesions with hot cautery scissors freeing the fascial defect, which was about 5 cm in length and 3.5 cm in diameter. Peritoneum taken down, taking care to avoid encroachment on the skin. This unroofed some of the hernia sac. Primary fascial closure successfully performed using continuous suture of #1 V-Loc suture after reducing pneumoperitoneum to 9 mmHg. Once this was approximated with to and fro stitch, the Ventralight mesh was secured to the abdominal wall with remaining #1 V-Loc suture. 2-0 V-Loc suture completed the repair, securing the mesh to the abdominal wall tightly approximated to the abdominal wall circumferentially and running the suture back to the midline. [place] and sutures were cut, removed. Proper needle counts obtained. Pneumoperitoneum reduced. All instruments were removed, and all skin incisions were approximated with interrupted subdermal 4-0 Monocryl and [place] glue applied. Job ID: [id number]
== END 2020-04-12 15:30 | disposition home or self-care (01) ==
LOC: SDC 05:55
PROVIDERS: ATTEND Specialist
PROC: 0WUF4JZ Supplement Abdominal Wall with Synthetic Substitute, Percutaneous Endoscopic Approach (ICD-10-PCS; principal; 2020-04-12)
DX: K43.2 Incisional hernia without obstruction or gangrene (principal); R91.1 Solitary pulmonary nodule; Z79.899 Other long term (current) drug therapy; Z88.5 Allergy status to narcotic agent; Z87.891 Personal history of nicotine dependence; Z90.49 Acquired absence of other specified parts of digestive tract
CPT/HCPCS: C1781; J0690; J1100; J1885; J2370; J2405; J2550; J2704; J3010; J7620; S0020

== ENCOUNTER 2020-05-04 10:29 | Outpatient (CLI) | payer BC, MEDICARE ==
--- NOTE | 2020-05-04 16:20 | CT ---
CT NECK SOFT TISSUES WITH CONTRAST: 05/04/20 HISTORY: 65-year-old female with cervical lymphadenopathy. Follow-up. Evaluate for progression. COMPARISON: 09/15/19 FINDINGS: The previously described left level IV lymph node with irregular margins, located slightly lateral to the lower pole of the left lobe of the thyroid gland, measuring 0.7 cm on axial image (7 x 6 x 14 mm ), is unchanged. According to the PET scan report of 09/21/19, this was not hypermetabolic. The previously described multiple thyroid nodules are essentially unchanged. No other enlarged lymph node. Normal larynx. Centrilobular emphysematous changes throughout bilateral lung apices. Bilateral tympanomastoid cavities and maxillary sinuses, are grossly clear. The pharyngeal mucosal, parapharyngeal, perivertebral, parotid, carotid, retropharyngeal, posterior c ervical, feed house supervisor, spaces, are unremarkable. The right submandibular gland is very small. The left mandibular gland is absent. No destructive osseous lesion is identified. No interval change overall. IMPRESSION: 1. The left level 4 mildly enlarged cervical lymph node is unchanged since 09/15/19. Recommend an other follow-up neck CT with contrast in September 2020, which would be the one year anniversary from the original neck CT. 2. Centrilobular emphysema. 3. Atrophic right and absent left submandibular glands. 4. No interval change overall. POS: [facility]
--- NOTE | 2020-05-04 17:22 | CT ---
CT THORAX WITH CONTRAST: 05/04/20 HISTORY: 65-year-old female follow-up abnormal pulmonary findings on prior CTs. COMPARISON: 03/21/20. FINDINGS: The mild, small, nodular branching pattern at the medial inferior aspect of the right middle lobe ant eriorly, is unchanged since the previous CT. There are centrilobular emphysematous changes throughout both lungs diffusely. No suspicious pulmonary nodule is identified. Previously mentioned tiny few pu lmonary nodules, including 3 mm left upper lobe pulmonary nodule, are unchanged. There are no suspici ous pulmonary nodules. No consolidation, pulmonary edema, pleural effusion, pneumothorax, thoracic ao rtic aneurysm or dissection, mediastinal or hilar lymphadenopathy, cardiomegaly, pericardial effusion , or any significant interval change. IMPRESSION: 1. Centrilobular emphysema. 2. No interval change overall. TAMIKO Dacosta POS: [facility]
== END 2020-05-04 10:30 | disposition home or self-care (01) ==
LOC: BICCT 10:29
PROVIDERS: ATTEND Internal Medicine Hematology & Oncology
DX: R59.0 Localized enlarged lymph nodes (principal); C18.2 Malignant neoplasm of ascending colon; R91.1 Solitary pulmonary nodule; F17.210 Nicotine dependence, cigarettes, uncomplicated; J43.2 Centrilobular emphysema
CPT/HCPCS: 70491; 71260

== ENCOUNTER 2020-09-08 10:31 | Outpatient (CLI) | payer BC, MEDICARE ==
[~2020-09-08 10:31] MED LIST changes: +Iopamidol 370 76% 100 ML VIAL ONE; -Iopamidol 370 76% 50 ML VIAL FS ONE; -Iopamidol-370 76% 500 ML 1 ML ONE
--- NOTE | 2020-09-08 11:31 | ULT ---
Thyroid ultrasound: 09/08/2020 COMPARISON: None available HISTORY: Multiple thyroid nodules noted on multiple prior CT examinations TECHNIQUE: Multiplanar grayscale sonographic imaging of the thyroid gland obtained. FINDINGS: The thyroid isthmus measures 3 mm in AP dimension. The right lobe measures 1.9 x 4.7 x 2.1 cm. Multiple right-sided thyroid nodules are noted. These nodules demonstrate a heterogeneously hypoechoic appearance, likely on the basis of complex cystic nodules. The largest such nodule within the right lobe measures 1.3 x 0.9 x 1.1 cm. Numerous thyroid nodules are also noted on the left. Within the superior aspect of the left lobe ther e is an isoechoic solid round nodule measuring up to 1.4 cm. There is a complex nodule within the midportion of the left lobe with internal punctate calcification as well as areas of internal septati on and/or solid nodularity. This nodule measures 1.5 x 1.3 x 1.4 cm. IMPRESSION: TI-RADS Category 4-moderately suspicious. The largest nodule on the left measuring up to 1.5 cm with internal punctate calcification is moderately suspicious and fine-needle aspiration is advised. The other nodules should be reevaluated with follow-up ultrasound in one year.
--- NOTE | 2020-09-08 14:39 | CT ---
CT CHEST WITH IV CONTRAST CT ABDOMEN WITH IV CONTRAST CT PELVIS WITH IV CONTRAST: Date: 09/08/2020 HISTORY: Colon cancer follow-up. Malignant neoplasm of ascending colon. Nicotine dependence, cigarettes, uncom plicated. COMPARISON: CT chest and abdomen and pelvis of 03/21/[address] chest of 05/04/2020. FINDINGS: No mediastinal, hilar, or axillary mass or lymphadenopathy is seen. No pleural or pericardial effusio ns are identified. There are emphysematic changes with stable tiny 3-4 mm nodules again seen. The tin y nodular branching pattern at the medial inferior aspect of the right middle lobe and anteriorly is unchanged. No new suspicious nodules or pulmonary nodules are seen. The 1.4 cm hypodensity in the right hepatic lobe is stable. The spleen, pancreas, and adrenal glands are normal. No calcified gallstones are seen. Tiny low density lesions in the kidneys are likely cyst s. No free air, free fluid, or lymphadenopathy is seen in the abdomen or pelvis. The small bowel loops a re not abnormally dilated. Postsurgical changes of right hemicolectomy are again seen. Uterus is pres ent. There are vascular calcifications without evidence of aneurysmal dilatation of the thoracoabdominal a dee. There are degenerative changes in the thoracolumbar spine. No suspicious osteolytic or osteobla stic lesions are seen. Low density lesions in the thyroid gland are stable. IMPRESSION: No definite evidence of metastatic disease. POS: [facility]
== END 2020-09-08 10:32 | disposition home or self-care (01) ==
LOC: ULT 10:31
PROVIDERS: ATTEND Internal Medicine Hematology & Oncology
DX: C18.2 Malignant neoplasm of ascending colon (principal); F17.210 Nicotine dependence, cigarettes, uncomplicated; E04.1 Nontoxic single thyroid nodule
CPT/HCPCS: 71260; 74177; 76536; Q9967

== ENCOUNTER 2020-10-02 10:21 | Outpatient (CLI) | payer BC, MEDICARE ==
[2020-10-03 01:54] LABS: SARS-CoV-2 PCR by NAA Not Detected (NotDetected)
== END 2020-10-02 10:22 | disposition home or self-care (01) ==
LOC: LABBT 10:21
PROVIDERS: ATTEND Internal Medicine Hematology & Oncology
DX: Z01.812 Encounter for preprocedural laboratory examination (principal); C18.2 Malignant neoplasm of ascending colon; F17.210 Nicotine dependence, cigarettes, uncomplicated; Z20.822 Contact with and (suspected) exposure to COVID-19
CPT/HCPCS: 87635; U0003; U0005

== ENCOUNTER 2020-10-05 12:42 | Day surgery (SDC) | payer BC, MEDICARE ==
[2020-10-04 09:03] VITALS: BMI 25.0
[2020-10-05] MEDS ORDERED: Lidocaine 1% PF 5 ML VIAL ONE (12:44)
[2020-10-05] MEDS ORDERED: Sodium Bicarbonate 2.5 MEQ/5 ML VIAL ONE (12:44)
[2020-10-05 14:17] VITALS: BP 117/73; TEMP 98.4
== END 2020-10-05 13:50 | disposition home or self-care (01) ==
LOC: ULT 12:42
PROVIDERS: ATTEND Internal Medicine Hematology & Oncology
PROC: 0GJK3ZZ Inspection of Thyroid Gland, Percutaneous Approach (ICD-10-PCS; principal; 2020-10-05)
PROC: BG44ZZZ Ultrasonography of Thyroid Gland (ICD-10-PCS; principal; 2020-10-05)
DX: E04.1 Nontoxic single thyroid nodule (principal); F17.210 Nicotine dependence, cigarettes, uncomplicated; C18.2 Malignant neoplasm of ascending colon; Z79.899 Other long term (current) drug therapy; Z88.5 Allergy status to narcotic agent
CPT/HCPCS: 60100; 76942; 88173

== ENCOUNTER 2020-10-19 10:30 | Outpatient (CLI) | payer BC, MEDICARE | END 2020-10-19 10:31 | disposition home or self-care (01) | LOC: BICMAMMO 10:30 | PROVIDERS: ATTEND Internal Medicine Hematology & Oncology | DX: Z12.31 Encounter for screening mammogram for malignant neoplasm of breast (principal); N64.89 Other specified disorders of breast | CPT/HCPCS: 77063; 77067 ==

== ENCOUNTER 2020-10-26 08:57 | Outpatient (CLI) | payer BC, MEDICARE | END 2020-10-26 08:58 | disposition home or self-care (01) | LOC: BICMAMMO 08:57 | PROVIDERS: ATTEND Internal Medicine Hematology & Oncology | DX: R92.8 Other abnormal and inconclusive findings on diagnostic imaging of breast (principal) | CPT/HCPCS: G0279 ==

== ENCOUNTER 2021-08-15 08:59 | Outpatient (CLI) | payer BC, MEDICARE ==
[2021-08-15] MEDS ORDERED: Iopamidol-370 76% 500 ML 1 ML ONE (11:00)
== END 2021-08-15 09:00 | disposition home or self-care (01) ==
LOC: BICCT 08:59
PROVIDERS: ATTEND Internal Medicine Hematology & Oncology
DX: C18.2 Malignant neoplasm of ascending colon (principal); K76.9 Liver disease, unspecified; Z90.49 Acquired absence of other specified parts of digestive tract; J44.9 Chronic obstructive pulmonary disease, unspecified; R91.1 Solitary pulmonary nodule
CPT/HCPCS: 71260; 74177; Q9967

== ENCOUNTER 2021-09-14 10:50 | Outpatient (CLI) | payer BC, MEDICARE | END 2021-09-14 10:51 | disposition home or self-care (01) | LOC: BICULT 10:50 | PROVIDERS: ATTEND Internal Medicine Hematology & Oncology | DX: E04.2 Nontoxic multinodular goiter (principal); R93.7 Abnormal findings on diagnostic imaging of other parts of musculoskeletal system; C18.2 Malignant neoplasm of ascending colon; M81.8 Other osteoporosis without current pathological fracture; F17.210 Nicotine dependence, cigarettes, uncomplicated | CPT/HCPCS: 76536 ==

== ENCOUNTER 2021-11-06 08:59 | Outpatient (CLI) | payer BC, MEDICARE | END 2021-11-06 09:00 | disposition home or self-care (01) | LOC: BICCT 08:59 | PROVIDERS: ATTEND Internal Medicine Hematology & Oncology | DX: C18.2 Malignant neoplasm of ascending colon (principal); K76.89 Other specified diseases of liver; R91.8 Other nonspecific abnormal finding of lung field; K57.30 Diverticulosis of large intestine without perforation or abscess without bleeding; N32.89 Other specified disorders of bladder | CPT/HCPCS: 71260; 74177 ==

== ENCOUNTER 2022-05-17 08:56 | Outpatient (CLI) | payer BC, MEDICARE | END 2022-05-17 08:57 | disposition home or self-care (01) | LOC: BICMAMMO 08:56 | PROVIDERS: ATTEND Internal Medicine Hematology & Oncology | DX: M81.8 Other osteoporosis without current pathological fracture (principal) | CPT/HCPCS: 77080 ==

== ENCOUNTER 2022-10-07 14:37 | Outpatient (CLI) | payer BC, MEDICARE | END 2022-10-07 14:38 | disposition home or self-care (01) | LOC: ULT 14:37 | PROVIDERS: ATTEND Internal Medicine Hematology & Oncology | DX: E04.2 Nontoxic multinodular goiter (principal); R93.7 Abnormal findings on diagnostic imaging of other parts of musculoskeletal system | CPT/HCPCS: 76536 ==

== ENCOUNTER 2022-12-18 12:01 | Outpatient (CLI) | payer MEDICARE, BC | END 2022-12-18 12:02 | disposition home or self-care (01) | LOC: BICMAMMO 12:01 | PROVIDERS: ATTEND Internal Medicine Hematology & Oncology | DX: Z12.31 Encounter for screening mammogram for malignant neoplasm of breast (principal) | CPT/HCPCS: 77063; 77067 ==

== ENCOUNTER 2023-05-20 09:04 | Outpatient (CLI) | payer MEDICARE, BC ==
[2023-05-20] MEDS ORDERED: Iopamidol 370 76% 100 ML VIAL ONE (09:25)
== END 2023-05-20 09:05 | disposition home or self-care (01) ==
LOC: BICCT 09:04
PROVIDERS: ATTEND Internal Medicine Hematology & Oncology
DX: C18.2 Malignant neoplasm of ascending colon (principal); M81.8 Other osteoporosis without current pathological fracture; F17.210 Nicotine dependence, cigarettes, uncomplicated
CPT/HCPCS: 71260; 74177; 80053; 82378; 82565; Q9967

== ENCOUNTER 2023-05-27 14:46 | Outpatient (CLI) | payer MEDICARE, BC | END 2023-05-27 14:47 | disposition home or self-care (01) | LOC: BICMAMMO 14:46 | PROVIDERS: ATTEND Internal Medicine Hematology & Oncology | DX: Z13.820 Encounter for screening for osteoporosis (principal); M81.0 Age-related osteoporosis without current pathological fracture; M85.88 Other specified disorders of bone density and structure, other site | CPT/HCPCS: 77080 ==

== ENCOUNTER 2023-10-10 09:17 | Outpatient (CLI) | payer MEDICARE, BC | END 2023-10-10 09:18 | disposition home or self-care (01) | LOC: BICULT 09:17 | PROVIDERS: ATTEND Internal Medicine Hematology & Oncology | DX: E04.2 Nontoxic multinodular goiter (principal); R93.7 Abnormal findings on diagnostic imaging of other parts of musculoskeletal system | CPT/HCPCS: 76536 ==

== ENCOUNTER 2023-12-22 09:48 | Outpatient (CLI) | payer MEDICARE, BC | END 2023-12-22 09:49 | disposition home or self-care (01) | LOC: BICMAMMO 09:48 | PROVIDERS: ATTEND Family Medicine | DX: Z12.31 Encounter for screening mammogram for malignant neoplasm of breast (principal); Z85.038 Personal history of other malignant neoplasm of large intestine | CPT/HCPCS: 77063; 77067 ==

== ENCOUNTER 2024-06-02 08:40 | Outpatient (CLI) | payer MEDICARE, BC ==
[2024-06-02] MEDS ORDERED: Iopamidol 370 76% 100 ML VIAL ONE (09:14)
== END 2024-06-02 08:41 | disposition home or self-care (01) ==
LOC: BICCT 08:40
PROVIDERS: ATTEND Internal Medicine Hematology & Oncology
DX: C18.9 Malignant neoplasm of colon, unspecified (principal); J98.4 Other disorders of lung
CPT/HCPCS: 71260; 74177; Q9967

== ENCOUNTER 2025-05-16 08:45 | Outpatient (CLI) | payer MEDICARE, BC | END 2025-05-16 08:46 | disposition home or self-care (01) | LOC: BICCT 08:45 | PROVIDERS: ATTEND Internal Medicine Hematology & Oncology | DX: Z12.2 Encounter for screening for malignant neoplasm of respiratory organs (principal); F17.210 Nicotine dependence, cigarettes, uncomplicated; C18.2 Malignant neoplasm of ascending colon; M81.8 Other osteoporosis without current pathological fracture; J43.9 Emphysema, unspecified | CPT/HCPCS: 71271 ==

== ENCOUNTER 2025-07-20 13:06 | Outpatient (CLI) | payer MEDICARE, BC | END 2025-07-20 13:07 | disposition home or self-care (01) | LOC: MRI 13:06 | PROVIDERS: ATTEND Nurse Practitioner Family | DX: M47.26 Other spondylosis with radiculopathy, lumbar region (principal); M48.061 Spinal stenosis, lumbar region without neurogenic claudication | CPT/HCPCS: 72148 ==